=== PATIENT | male | born 1975 | race Hispanic/Latino ===

== ENCOUNTER 2017-12-12 14:53 | Inpatient (IN) | payer OTHER, MEDICARE ==
[~2017-12-12] VITALS: Ht 180.3 cm; Wt 124.7 kg
[2017-12-12 15:18] LABS: BASOPHILS % (AUTO) 0.7 % (0.0-5.0); EOSINOPHILS % (AUTO) 0.1 % (0.0-8.0); LYMPHOCYTES % (AUTO) 17.5 % (21.0-51.0); MEAN CORPUSCULAR HEMOGLOBIN 29.7 pg (27.0-33.0); MEAN CORPUSCULAR HGB CONC 35.3 g/dL (32.0-36.0); MEAN CORPUSCULAR VOLUME 84.1 fL (79-99); MONOCYTES % (AUTO) 3.2 % (3.0-13.0); NEUTROPHILS % (AUTO) 78.5 % (40.0-77.0); PLATELET COUNT (AUTO) 262 K/uL (130-400); RED CELL DISTRIBUTION WIDTH 13.7 % (11.0-15.5); WHITE BLOOD COUNT (AUTO) 10.6 K/uL (4.8-10.8)
[2017-12-12] MEDS ORDERED: ONDANSETRON HCL 4 MG/2 ML VIAL ONE (15:18)
[2017-12-12] MEDS ORDERED: HYDROMORPHONE HCL 2 MG/ML VIAL ONE ×2 (15:19→22:18)
[2017-12-12 15:21] LABS: HEMATOCRIT 17.6 % (42-54)
[2017-12-12 15:30] LABS: CARBON DIOXIDE 22 mmol/L (21-32); CHLORIDE 100 mmol/L (101-111); CREATININE 5.1 mg/dL (0.5-1.5); GLOMERULAR FILTR. RATE CALC 13 mL/min (>60); GLUCOSE,RANDOM 264 mg/dL (70-105); INR 1.01 (0.85-1.15); PARTIAL THROMBOPLASTIN TIME 30.8 SEC (26.3-35.5); POTASSIUM 3.3 mmol/L (3.5-5.1); PROTHROMBIN TIME 10.6 SEC (9.6-11.6); SODIUM SERUM 137 mmol/L (136-145); UREA NITROGEN, BLOOD 38 mg/dL (7-18)
[2017-12-12 15:43] LABS: ALANINE AMINOTRANSFERASE 13 U/L (12-78); ASPARTATE AMINOTRANSFERASE 14 U/L (10-37); BILIRUBIN,TOTAL 0.3 mg/dL (0.2-1.0); CREATINE KINASE MB < 0.5 ng/mL (0.5-3.6); CREATINE KINASE, TOTAL 22 U/L (21-232); TOTAL PROTEIN, SERUM 6.6 g/dL (6.0-8.3)
[2017-12-12] MEDS ORDERED: MEROPENEM 1 GM VIAL ONE (15:43)
[2017-12-12] MEDS ORDERED: SODIUM CHLORIDE 0.9% 1000ML 3,000 ML IV ONE (15:43)
[2017-12-12] MEDS ORDERED: SODIUM CHLORIDE 0.9% 1000ML 1,000 ML IV ONE (18:14)
[2017-12-12 19:30] VITALS: BP 157/85
[2017-12-12] MEDS ORDERED: COMPOUND IV REFRIGERATED 1 EACH IVSOLN MISC PRN (20:30)
[2017-12-12] MEDS ORDERED: MORPHINE SULFATE 4 MG/1ML SYG IVP PRN ×2 (20:30)
[2017-12-12] MEDS ORDERED: ONDANSETRON HCL 4 MG/2 ML VIAL IVP PRN (20:30)
[2017-12-12] MEDS ORDERED: VANCOMYCIN PROTOCOL PER PHARMACY IV SCH (20:30)
[2017-12-12] MEDS ORDERED: VANCOMYCIN 1.75 GM in SODIUM CHLORIDE 0.9% 250 ML IV SCH (20:30)
[2017-12-12] MEDS ORDERED: ACETAMINOPHEN 325 MG TAB PO PRN (20:30)
[2017-12-12] MEDS ORDERED: HYDROMORPHONE 1 MG/1 ML AMP IVP ONE (22:30)
[2017-12-12 23:00] VITALS: BP 128/89
[2017-12-13] VITALS (22 sets, daily range): BP systolic 101–142; BP diastolic 47–74
[2017-12-13 01:58] LABS: APPEARANCE,URINE Cloudy (CLEAR); BILIRUBIN,URINE Negative (NEGATIVE); COLOR,URINE Red (YELLOW); GLUCOSE, URINE (UA) 500 mg/dL (NEGATIVE); KETONES,URINE Negative (NEGATIVE); LEUKOCYTE ESTERASE ,URINE Moderate (NEGATIVE); NITRATE,URINE Negative (NEGATIVE); OCCULT BLOOD,URINE Large (NEGATIVE); PH,URINE 5.5 (5.0-8.0); PROTEIN,URINE 300 (NEGATIVE); UROBILINOGEN,URINE 0.2 mg/dL (0.2-1.0)
[2017-12-13 02:03] LABS: BACTERIA,URINE Many /HPF (None Seen); RBC,URINE TNTC /HPF (0-1); WBC,URINE TNTC /HPF (0-1)
[2017-12-13 02:05] LABS: AMPHET/METH SCREEN,URINE NEGATIVE (NEGATIVE); BARBITURATE SCREEN, URINE NEGATIVE (NEGATIVE); BENZODIAZEPINES SCREEN,URINE NEGATIVE (NEGATIVE); CANNABINOID SCREEN,URINE NEGATIVE (NEGATIVE); COCAINE SCREEN,URINE POSITIVE (NEGATIVE); OPIATE SCREEN,URINE NEGATIVE (NEGATIVE); PHENCYCLIDINE SCREEN,URINE NEGATIVE (NEGATIVE)
[2017-12-13] MEDS ORDERED: HYDROMORPHONE 4MG/ML 1ML VIAL IVP PRN (02:30)
[2017-12-13] MEDS ORDERED: HYDROMORPHONE HCL 2 MG/ML VIAL ONE ×2 (02:38→06:43)
[2017-12-13] MEDS: MEROPENEM 500 MG VIAL IVP SCH ×2 (04:37→16:33)
[2017-12-13 07:03] LABS: MEAN CORPUSCULAR HEMOGLOBIN 31.2 pg (27.0-33.0); MEAN CORPUSCULAR HGB CONC 35.9 g/dL (32.0-36.0); MEAN CORPUSCULAR VOLUME 87.1 fL (79-99); PLATELET COUNT (AUTO) 169 K/uL (130-400); RED CELL DISTRIBUTION WIDTH 14.3 % (11.0-15.5); WHITE BLOOD COUNT (AUTO) 5.1 K/uL (4.8-10.8)
[2017-12-13 07:05] LABS: HEMATOCRIT 18.3 % (42-54)
[2017-12-13 07:20] LABS: POTASSIUM 3.4 mmol/L (3.5-5.1); THYROID STIMULATING HORMONE 2.87 uIU/mL (0.36-3.74)
[2017-12-13] MEDS: INSULIN HUMULIN R 100 UNIT/ML 3ML SQ SCH ×3 (07:30→21:00)
[2017-12-13 07:38] LABS: HEMOGLOBIN A1C 5.5 % (4.0-6.0)
[2017-12-13] MEDS: LINEZOLID 600 MG/ISO-OSM 300 ML IV SCH (16:32)
[2017-12-13 17:31] LABS: MEAN CORPUSCULAR HEMOGLOBIN 31.7 pg (27.0-33.0); MEAN CORPUSCULAR HGB CONC 36.7 g/dL (32.0-36.0); MEAN CORPUSCULAR VOLUME 86.2 fL (79-99); PLATELET COUNT (AUTO) 135 K/uL (130-400); RED BLOOD CELL COUNT(AUTO) 2.18 MIL/uL (4.50-6.20); RED CELL DISTRIBUTION WIDTH 14.1 % (11.0-15.5); WHITE BLOOD COUNT (AUTO) 9.4 K/uL (4.8-10.8)
[2017-12-13] MEDS ORDERED: BUPIVACAINE/PF 0.5% 30ML VIAL ONE (17:48)
[2017-12-13] MEDS ORDERED: SUCCINYLCHOLINE 200MG/10ML SYR ONE (17:48)
[2017-12-13] MEDS ORDERED: GLYCOPYRROLATE 0.2 MG/ML 5 ML VIAL ONE (17:48)
[2017-12-13] MEDS ORDERED: LIDOCAINE PF 2% 5ML ABBOJECT ONE (17:48)
[2017-12-13] MEDS ORDERED: ONDANSETRON HCL 4 MG/2 ML VIAL ONE (17:48)
[2017-12-13] MEDS ORDERED: LIDOCAINE HCL 1% 20 ML VIAL ONE (17:48)
[2017-12-13] MEDS ORDERED: DEXAMETHASONE SOD PHOSPHATE 10MG/ML 1ML VIAL ONE (17:48)
[2017-12-13] MEDS ORDERED: MIDAZOLAM HCL 1 MG/ML 2ML VIAL ONE ×3 (17:49→18:31)
[2017-12-13] MEDS ORDERED: PROPOFOL 10 MG/ML 20ML VIAL IV ONE (17:49)
[2017-12-13] MEDS ORDERED: FENTANYL CITRATE PF 50 MCG/1 ML 2ML VIAL ONE ×3 (17:49→18:37)
[2017-12-13 17:50] LABS: HEMATOCRIT 18.8 % (42-54)
[2017-12-13 21:04] LABS: CREATININE 6.5 mg/dL (0.5-1.5); POTASSIUM 3.5 mmol/L (3.5-5.1)
[2017-12-13 21:08] LABS: HEMATOCRIT 16.5 % (42-54)
[2017-12-13] MEDS ORDERED: SODIUM CHLORIDE 0.9% 500ML 500 ML IV ONE (22:12)
[2017-12-13] MEDS: RISPERIDONE 1 MG TABLET PO SCH (22:20)
[2017-12-13] MEDS: OXCARBAZEPINE 300 MG TAB PO SCH (22:20)
[2017-12-13] MEDS: HYDROMORPHONE HCL 2 MG/ML VIAL IVP PRN (23:18)
[2017-12-14] VITALS (10 sets, daily range): BP systolic 95–148; BP diastolic 49–82
[2017-12-14] MEDS: LINEZOLID 600 MG/ISO-OSM 300 ML IV SCH ×3 (02:00→14:31)
[2017-12-14] MEDS: HYDROMORPHONE HCL 2 MG/ML VIAL IVP PRN ×4 (04:18→21:44)
[2017-12-14] MEDS: MEROPENEM 500 MG VIAL IVP SCH ×2 (04:39→17:07)
[2017-12-14 06:16] LABS: MEAN CORPUSCULAR HEMOGLOBIN 31.1 pg (27.0-33.0); MEAN CORPUSCULAR HGB CONC 37.1 g/dL (32.0-36.0); MEAN CORPUSCULAR VOLUME 83.8 fL (79-99); PLATELET COUNT (AUTO) 129 K/uL (130-400); RED BLOOD CELL COUNT(AUTO) 2.42 MIL/uL (4.50-6.20); RED CELL DISTRIBUTION WIDTH 14.1 % (11.0-15.5); WHITE BLOOD COUNT (AUTO) 8.7 K/uL (4.8-10.8)
[2017-12-14 06:31] LABS: ALBUMIN 1.5 g/dL (3.5-5.0); BILIRUBIN,TOTAL 0.3 mg/dL (0.2-1.0); CREATININE 7.3 mg/dL (0.5-1.5); MAGNESIUM 1.2 mg/dL (1.80-2.40); PHOSPHORUS 7.3 mg/dL (2.5-4.9); POTASSIUM 3.1 mmol/L (3.5-5.1); TOTAL PROTEIN, SERUM 5.2 g/dL (6.0-8.3); URIC ACID 6.8 mg/dL (2.6-7.2)
[2017-12-14 06:35] LABS: HEMATOCRIT 20.3 % (42-54)
[2017-12-14 06:37] LABS: HEMOGLOBIN A1C 5.2 % (4.0-6.0)
[2017-12-14] MEDS: INSULIN HUMULIN R 100 UNIT/ML 3ML SQ SCH ×4 (06:57→21:40)
[2017-12-14] MEDS: ASPIRIN 81 MG EC TAB PO SCH ×2 (09:00→17:26)
[2017-12-14] MEDS: CLOPIDOGREL BISULFATE 75 MG TAB PO SCH ×2 (09:00→17:26)
[2017-12-14] MEDS: OXCARBAZEPINE 300 MG TAB PO SCH ×2 (11:23→20:57)
[2017-12-14] MEDS: FOLIC ACID/VITAMIN B COMP W-C 1 MG CAPSULE PO SCH (11:23)
[2017-12-14] MEDS: FLUOXETINE HCL 10 MG CAPSULE PO SCH (11:23)
[2017-12-14] MEDS: ALPRAZOLAM 1 MG TAB PO SCH (20:57)
[2017-12-14] MEDS: RISPERIDONE 1 MG TABLET PO SCH (20:57)
[2017-12-15 03:30] VITALS: BP 134/91
[2017-12-15] MEDS: MEROPENEM 500 MG VIAL IVP SCH ×2 (03:48→17:11)
[2017-12-15] MEDS: LINEZOLID 600 MG/ISO-OSM 300 ML IV SCH ×2 (03:48→17:11)
[2017-12-15] MEDS: HYDROMORPHONE HCL 2 MG/ML VIAL IVP PRN ×4 (03:49→21:32)
[2017-12-15 04:01] LABS: POTASSIUM 3.3 mmol/L (3.5-5.1)
[2017-12-15 04:11] LABS: CREATININE 8.2 mg/dL (0.5-1.5)
[2017-12-15 05:17] LABS: HEMATOCRIT 34.4 % (42-54); MEAN CORPUSCULAR HEMOGLOBIN 29.2 pg (27.0-33.0); MEAN CORPUSCULAR HGB CONC 32.7 g/dL (32.0-36.0); MEAN CORPUSCULAR VOLUME 89.3 fL (79-99); PLATELET COUNT (AUTO) 283 K/uL (130-400); RED BLOOD CELL COUNT(AUTO) 3.86 MIL/uL (4.50-6.20); RED CELL DISTRIBUTION WIDTH 16.2 % (11.0-15.5); WHITE BLOOD COUNT (AUTO) 5.4 K/uL (4.8-10.8)
[2017-12-15 05:42] LABS: BAND NEUTROPHILS % (MANUAL) 7 % (0-2); EOSINOPHILS % (MANUAL) 1 % (1-6); LYMPHOCYTES % (MANUAL) 25 % (22-44); MONOCYTES % (MANUAL) 8 % (2-9); SEGMENTED NEUTROPHILS % 59 % (40-70)
[2017-12-15 05:43] LABS: MAN.DIFF COMMENT-IMPRESSION MANUAL DIFFERENTIAL; PLATELET MORPHOLOGY COMMENT ADEQUATE
[2017-12-15 07:00] VITALS: BP 142/82
[2017-12-15] MEDS: INSULIN HUMULIN R 100 UNIT/ML 3ML SQ SCH ×4 (07:07→21:29)
[2017-12-15] MEDS ORDERED: HYDROMORPHONE HCL 2 MG/ML VIAL ONE (08:50)
[2017-12-15] MEDS: FOLIC ACID/VITAMIN B COMP W-C 1 MG CAPSULE PO SCH (09:05)
[2017-12-15] MEDS: FLUOXETINE HCL 10 MG CAPSULE PO SCH (09:05)
[2017-12-15] MEDS: OXCARBAZEPINE 300 MG TAB PO SCH ×2 (09:05→21:32)
[2017-12-15] MEDS: ALPRAZOLAM 1 MG TAB PO SCH ×2 (10:07→21:32)
[2017-12-15 11:00] VITALS: BP 111/61
[2017-12-15 16:00] VITALS: BP 130/82
[2017-12-15 19:31] VITALS: BP 144/71
[2017-12-15] MEDS ORDERED: INSULIN DETEMIR 10ML 100 UNIT/ML 10ML SQ SCH (21:00)
[2017-12-15] MEDS ORDERED: INSULIN GLARGINE 100 UNITS/ML 10 ML VIAL SQ SCH (21:00)
[2017-12-15] MEDS: RISPERIDONE 1 MG TABLET PO SCH (21:32)
[2017-12-15 22:39] LABS: APPEARANCE,URINE Clear (CLEAR); BILIRUBIN,URINE Negative (NEGATIVE); COLOR,URINE Yellow (YELLOW); GLUCOSE, URINE (UA) 500 mg/dL (NEGATIVE); KETONES,URINE Negative (NEGATIVE); LEUKOCYTE ESTERASE ,URINE Small (NEGATIVE); NITRATE,URINE Negative (NEGATIVE); OCCULT BLOOD,URINE Large (NEGATIVE); PH,URINE 5.5 (5.0-8.0); PROTEIN,URINE POS 2+ (NEGATIVE); UROBILINOGEN,URINE 0.2 mg/dL (0.2-1.0)
[2017-12-15 22:53] LABS: BACTERIA,URINE Moderate /HPF (None Seen); MUCUS,URINE Few LPF (None Seen); RBC,URINE TNTC /HPF (0-1); SQUAMOUS EPITHELIAL CELL,UR Few /LPF (0-2); WBC,URINE 26-50 /HPF (0-1)
[2017-12-15 23:42] VITALS: BP 152/77
[2017-12-16] MEDS: HYDROMORPHONE HCL 2 MG/ML VIAL IVP PRN ×6 (00:54→22:22)
[2017-12-16 03:40] VITALS: BP 127/79
[2017-12-16] MEDS: MEROPENEM 500 MG VIAL IVP SCH ×2 (04:00→18:16)
[2017-12-16] MEDS: LINEZOLID 600 MG/ISO-OSM 300 ML IV SCH (04:00)
[2017-12-16 05:07] LABS: HEMATOCRIT 23.7 % (42-54); MEAN CORPUSCULAR HEMOGLOBIN 28.9 pg (27.0-33.0); MEAN CORPUSCULAR HGB CONC 35.1 g/dL (32.0-36.0); MEAN CORPUSCULAR VOLUME 82.4 fL (79-99); PLATELET COUNT (AUTO) 174 K/uL (130-400); RED BLOOD CELL COUNT(AUTO) 2.88 MIL/uL (4.50-6.20); RED CELL DISTRIBUTION WIDTH 15.3 % (11.0-15.5); WHITE BLOOD COUNT (AUTO) 6.7 K/uL (4.8-10.8)
[2017-12-16 05:14] LABS: INR 0.91 (0.85-1.15); PARTIAL THROMBOPLASTIN TIME 34.3 SEC (26.3-35.5); PROTHROMBIN TIME 9.6 SEC (9.6-11.6)
[2017-12-16 05:21] LABS: MAGNESIUM 1.5 mg/dL (1.80-2.40); PHOSPHORUS 8.9 mg/dL (2.5-4.9); POTASSIUM 3.4 mmol/L (3.5-5.1)
[2017-12-16 05:24] LABS: BAND NEUTROPHILS % (MANUAL) 11 % (0-2); EOSINOPHILS % (MANUAL) 1 % (1-6); LYMPHOCYTES % (MANUAL) 39 % (22-44); MONOCYTES % (MANUAL) 1 % (2-9); SEGMENTED NEUTROPHILS % 48 % (40-70)
[2017-12-16 05:25] LABS: MAN.DIFF COMMENT-IMPRESSION MANUAL DIFFERENTIAL; PLATELET MORPHOLOGY COMMENT ADEQUATE
[2017-12-16] MEDS: INSULIN HUMULIN R 100 UNIT/ML 3ML SQ SCH ×4 (06:21→22:36)
[2017-12-16 08:00] VITALS: BP 96/67
[2017-12-16] MEDS: CLOPIDOGREL BISULFATE 75 MG TAB PO SCH (09:36)
[2017-12-16] MEDS: FOLIC ACID/VITAMIN B COMP W-C 1 MG CAPSULE PO SCH (09:36)
[2017-12-16] MEDS: ASPIRIN 81 MG EC TAB PO SCH (09:36)
[2017-12-16] MEDS: FLUOXETINE HCL 10 MG CAPSULE PO SCH (09:37)
[2017-12-16] MEDS: OXCARBAZEPINE 300 MG TAB PO SCH ×2 (09:37→22:21)
[2017-12-16] MEDS: ALPRAZOLAM 1 MG TAB PO SCH ×2 (10:58→22:21)
[2017-12-16 12:00] VITALS: BP 120/71
[2017-12-16] MEDS ORDERED: POTASSIUM CHLORIDE 20 MEQ ERTAB PO ONE ×2 (14:45→17:49)
[2017-12-16 16:00] VITALS: BP 131/72
[2017-12-16] MEDS: CALCIUM ACETATE 667 MG CAPSULE PO SCH (18:16)
[2017-12-16 19:32] VITALS: BP 141/87
[2017-12-16] MEDS ORDERED: INSULIN GLARGINE 100 UNITS/ML 10 ML VIAL SQ SCH (21:00)
[2017-12-16] MEDS: SODIUM BICARBONATE 650 MG TAB PO SCH (22:22)
[2017-12-16] MEDS: RISPERIDONE 1 MG TABLET PO SCH (22:22)
[2017-12-16 23:37] VITALS: BP 149/89
[2017-12-17] MEDS: HYDROMORPHONE HCL 2 MG/ML VIAL IVP PRN ×2 (02:00→06:01)
[2017-12-17 03:46] VITALS: BP 126/76
[2017-12-17 04:45] LABS: MEAN CORPUSCULAR HEMOGLOBIN 30.7 pg (27.0-33.0); MEAN CORPUSCULAR HGB CONC 37.4 g/dL (32.0-36.0); MEAN CORPUSCULAR VOLUME 81.9 fL (79-99); PLATELET COUNT (AUTO) 186 K/uL (130-400); RED BLOOD CELL COUNT(AUTO) 2.52 MIL/uL (4.50-6.20); RED CELL DISTRIBUTION WIDTH 14.8 % (11.0-15.5); WHITE BLOOD COUNT (AUTO) 7.9 K/uL (4.8-10.8)
[2017-12-17 04:47] LABS: CREATININE 7.8 mg/dL (0.5-1.5); HEMATOCRIT 20.6 % (42-54); POTASSIUM 3.6 mmol/L (3.5-5.1)
[2017-12-17 04:50] LABS: BAND NEUTROPHILS % (MANUAL) 9 % (0-2); BASOPHILS % (MANUAL) 1 % (0-2); EOSINOPHILS % (MANUAL) 2 % (1-6); LYMPHOCYTES % (MANUAL) 25 % (22-44); MAN.DIFF COMMENT-IMPRESSION MANUAL DIFFERENTIAL; MONOCYTES % (MANUAL) 4 % (2-9); PLATELET MORPHOLOGY COMMENT ADEQUATE; SEGMENTED NEUTROPHILS % 59 % (40-70)
[2017-12-17] MEDS: INSULIN HUMULIN R 100 UNIT/ML 3ML SQ SCH ×4 (06:00→21:42)
[2017-12-17] MEDS: MEROPENEM 500 MG VIAL IVP SCH ×2 (06:00→16:28)
[2017-12-17 08:00] VITALS: BP 136/79
[2017-12-17] MEDS ORDERED: TRAMADOL HCL 50 MG TABLET PO PRN (08:15)
[2017-12-17] MEDS: CLOPIDOGREL BISULFATE 75 MG TAB PO SCH (10:04)
[2017-12-17] MEDS: ASPIRIN 81 MG EC TAB PO SCH (10:04)
[2017-12-17] MEDS: OXCARBAZEPINE 300 MG TAB PO SCH ×2 (10:04→19:47)
[2017-12-17] MEDS: SODIUM BICARBONATE 650 MG TAB PO SCH ×2 (10:04→19:47)
[2017-12-17] MEDS: FOLIC ACID/VITAMIN B COMP W-C 1 MG CAPSULE PO SCH (10:04)
[2017-12-17] MEDS: FLUOXETINE HCL 10 MG CAPSULE PO SCH (10:04)
[2017-12-17] MEDS: ALPRAZOLAM 1 MG TAB PO SCH ×2 (10:04→19:47)
[2017-12-17] MEDS: CALCIUM ACETATE 667 MG CAPSULE PO SCH ×2 (10:19→16:28)
[2017-12-17 11:00] VITALS: BP 112/73
[2017-12-17 16:00] VITALS: BP 152/81
[2017-12-17] MEDS: RISPERIDONE 1 MG TABLET PO SCH (19:47)
[2017-12-17 20:00] VITALS: BP 177/96
[2017-12-17] MEDS: INSULIN GLARGINE 100 UNITS/ML 10 ML VIAL SQ SCH (21:43)
[2017-12-17] MEDS ORDERED: AMLODIPINE BESYLATE 5 MG TAB PO ONE (22:00)
[2017-12-18] VITALS: BP 146/90
[2017-12-18] MEDS ORDERED: HYDROMORPHONE HCL 0.5 MG/0.5 ML ML ONE ×2 (00:27→10:43)
[2017-12-18] MEDS ORDERED: HYDROMORPHONE 1 MG/1 ML AMP ONE ×3 (00:42→23:53)
[2017-12-18 04:00] VITALS: BP 142/80
[2017-12-18] MEDS: MEROPENEM 500 MG VIAL IVP SCH ×2 (04:08→16:11)
[2017-12-18 04:33] LABS: HEMATOCRIT 21.4 % (42-54); MEAN CORPUSCULAR HEMOGLOBIN 29.1 pg (27.0-33.0); MEAN CORPUSCULAR HGB CONC 35.4 g/dL (32.0-36.0); MEAN CORPUSCULAR VOLUME 82.2 fL (79-99); PLATELET COUNT (AUTO) 228 K/uL (130-400); RED CELL DISTRIBUTION WIDTH 14.7 % (11.0-15.5); WHITE BLOOD COUNT (AUTO) 7.7 K/uL (4.8-10.8)
[2017-12-18 04:48] LABS: POTASSIUM 3.6 mmol/L (3.5-5.1)
[2017-12-18] MEDS: INSULIN HUMULIN R 100 UNIT/ML 3ML SQ SCH ×4 (06:06→21:26)
[2017-12-18 07:59] VITALS: BP 136/65
[2017-12-18] MEDS: ALPRAZOLAM 1 MG TAB PO SCH ×2 (10:03→21:31)
[2017-12-18] MEDS: SODIUM BICARBONATE 650 MG TAB PO SCH ×2 (10:03→21:31)
[2017-12-18] MEDS: FOLIC ACID/VITAMIN B COMP W-C 1 MG CAPSULE PO SCH (10:04)
[2017-12-18] MEDS: AMLODIPINE BESYLATE 5 MG TAB PO SCH (10:04)
[2017-12-18] MEDS: OXCARBAZEPINE 300 MG TAB PO SCH ×2 (10:04→21:31)
[2017-12-18] MEDS: CLOPIDOGREL BISULFATE 75 MG TAB PO SCH (10:04)
[2017-12-18] MEDS: ASPIRIN 81 MG EC TAB PO SCH (10:04)
[2017-12-18] MEDS: FLUOXETINE HCL 10 MG CAPSULE PO SCH (10:04)
[2017-12-18] MEDS: CALCIUM ACETATE 667 MG CAPSULE PO SCH ×2 (10:07→16:24)
[2017-12-18 11:51] VITALS: BP 176/106
[2017-12-18] MEDS: HYDROMORPHONE HCL 2 MG/ML VIAL IVP PRN (15:20)
[2017-12-18 16:00] VITALS: BP 169/111
[2017-12-18 20:00] VITALS: BP 160/90
[2017-12-18] MEDS: INSULIN GLARGINE 100 UNITS/ML 10 ML VIAL SQ SCH (21:27)
[2017-12-18] MEDS: RISPERIDONE 1 MG TABLET PO SCH (21:31)
[2017-12-19] VITALS: BP 140/82
[2017-12-19] MEDS: MEROPENEM 500 MG VIAL IVP SCH ×3 (03:26→16:46)
[2017-12-19 04:00] VITALS: BP 133/79
[2017-12-19] MEDS: INSULIN HUMULIN R 100 UNIT/ML 3ML SQ SCH ×4 (05:57→20:53)
[2017-12-19 06:36] LABS: MEAN CORPUSCULAR HEMOGLOBIN 30.4 pg (27.0-33.0); MEAN CORPUSCULAR HGB CONC 36.8 g/dL (32.0-36.0); MEAN CORPUSCULAR VOLUME 82.7 fL (79-99); PLATELET COUNT (AUTO) 241 K/uL (130-400); RED BLOOD CELL COUNT(AUTO) 2.47 MIL/uL (4.50-6.20); RED CELL DISTRIBUTION WIDTH 14.7 % (11.0-15.5); WHITE BLOOD COUNT (AUTO) 7.7 K/uL (4.8-10.8)
[2017-12-19 06:41] LABS: HEMATOCRIT 20.4 % (42-54)
[2017-12-19 06:44] LABS: CREATININE 6.4 mg/dL (0.5-1.5); POTASSIUM 3.8 mmol/L (3.5-5.1)
[2017-12-19 06:49] LABS: INR 0.96 (0.85-1.15); PARTIAL THROMBOPLASTIN TIME 31.8 SEC (26.3-35.5); PROTHROMBIN TIME 10.1 SEC (9.6-11.6)
[2017-12-19 07:20] LABS: EOSINOPHILS % (MANUAL) 4 % (1-6); LYMPHOCYTES % (MANUAL) 27 % (22-44); MAN.DIFF COMMENT-IMPRESSION MANUAL DIFFERENTIAL; MONOCYTES % (MANUAL) 2 % (2-9); PLATELET MORPHOLOGY COMMENT ADEQUATE; SEGMENTED NEUTROPHILS % 67 % (40-70)
[2017-12-19 08:00] VITALS: BP 158/89
[2017-12-19] MEDS: CLOPIDOGREL BISULFATE 75 MG TAB PO SCH ×2 (09:00→21:04)
[2017-12-19] MEDS: SODIUM BICARBONATE 650 MG TAB PO SCH ×2 (09:09→21:04)
[2017-12-19] MEDS: AMLODIPINE BESYLATE 5 MG TAB PO SCH (09:09)
[2017-12-19] MEDS: FLUOXETINE HCL 10 MG CAPSULE PO SCH (09:09)
[2017-12-19] MEDS: OXCARBAZEPINE 300 MG TAB PO SCH ×2 (09:09→21:04)
[2017-12-19] MEDS: FOLIC ACID/VITAMIN B COMP W-C 1 MG CAPSULE PO SCH (09:09)
[2017-12-19] MEDS: CALCIUM ACETATE 667 MG CAPSULE PO SCH ×2 (09:09→16:53)
[2017-12-19] MEDS: ASPIRIN 81 MG EC TAB PO SCH (09:10)
[2017-12-19] MEDS: ALPRAZOLAM 1 MG TAB PO SCH ×2 (09:10→21:03)
[2017-12-19] MEDS ORDERED: HYDROMORPHONE 1 MG/1 ML AMP ONE ×2 (10:21→20:47)
[2017-12-19 11:00] VITALS: BP 148/97
[2017-12-19 16:00] VITALS: BP 166/94
[2017-12-19] MEDS ORDERED: HYDROMORPHONE HCL 0.5 MG/0.5 ML ML ONE (18:16)
[2017-12-19 20:00] VITALS: BP 140/86
[2017-12-19] MEDS: INSULIN GLARGINE 100 UNITS/ML 10 ML VIAL SQ SCH (20:54)
[2017-12-19] MEDS: RISPERIDONE 1 MG TABLET PO SCH (21:04)
[2017-12-20] VITALS (7 sets, daily range): BP systolic 110–157; BP diastolic 66–90
[2017-12-20] MEDS ORDERED: HYDROMORPHONE 1 MG/1 ML AMP ONE (01:28)
[2017-12-20] MEDS: INSULIN HUMULIN R 100 UNIT/ML 3ML SQ SCH ×4 (06:25→21:38)
[2017-12-20 08:13] LABS: HEMATOCRIT 22.7 % (42-54); MEAN CORPUSCULAR HEMOGLOBIN 29.2 pg (27.0-33.0); MEAN CORPUSCULAR VOLUME 83.5 fL (79-99); PLATELET COUNT (AUTO) 286 K/uL (130-400); RED BLOOD CELL COUNT(AUTO) 2.71 MIL/uL (4.50-6.20); RED CELL DISTRIBUTION WIDTH 14.9 % (11.0-15.5); WHITE BLOOD COUNT (AUTO) 8.5 K/uL (4.8-10.8)
[2017-12-20 08:43] LABS: EOSINOPHILS % (MANUAL) 3 % (1-6); LYMPHOCYTES % (MANUAL) 12 % (22-44); MAN.DIFF COMMENT-IMPRESSION MANUAL DIFFERENTIAL; MONOCYTES % (MANUAL) 4 % (2-9); PLATELET MORPHOLOGY COMMENT ADEQUATE; SEGMENTED NEUTROPHILS % 81 % (40-70)
[2017-12-20 08:44] LABS: CREATININE 5.7 mg/dL (0.5-1.5)
[2017-12-20] MEDS: FLUOXETINE HCL 10 MG CAPSULE PO SCH (09:00)
[2017-12-20] MEDS ORDERED: EPOETIN ALFA 3,000 UNIT/ML ML SQ SCH (09:00)
[2017-12-20] MEDS: ALPRAZOLAM 1 MG TAB PO SCH ×2 (09:01→21:32)
[2017-12-20] MEDS: AMLODIPINE BESYLATE 5 MG TAB PO SCH (09:01)
[2017-12-20] MEDS: CALCIUM ACETATE 667 MG CAPSULE PO SCH ×2 (09:01→17:05)
[2017-12-20] MEDS: OXCARBAZEPINE 300 MG TAB PO SCH ×2 (09:01→21:32)
[2017-12-20] MEDS: FOLIC ACID/VITAMIN B COMP W-C 1 MG CAPSULE PO SCH (09:01)
[2017-12-20] MEDS: ASPIRIN 81 MG EC TAB PO SCH (09:01)
[2017-12-20] MEDS: SODIUM BICARBONATE 650 MG TAB PO SCH ×2 (09:01→21:32)
[2017-12-20] MEDS ORDERED: EPOETIN ALFA 20,000 UNIT/ML VIAL SQ SCH (09:11)
[2017-12-20 10:12] LABS: INR 0.98 (0.85-1.15); PROTHROMBIN TIME 10.3 SEC (9.6-11.6)
[2017-12-20] MEDS: MEROPENEM 500 MG VIAL IVP SCH (17:11)
[2017-12-20] MEDS: RISPERIDONE 1 MG TABLET PO SCH (21:32)
[2017-12-20] MEDS: INSULIN GLARGINE 100 UNITS/ML 10 ML VIAL SQ SCH (21:40)
[2017-12-20] MEDS: HYDROMORPHONE HCL 2 MG/ML VIAL IVP PRN (21:52)
[2017-12-21] VITALS (26 sets, daily range): BP systolic 102–188; BP diastolic 51–104
[2017-12-21] MEDS: HYDROMORPHONE HCL 2 MG/ML VIAL IVP PRN ×4 (01:16→21:16)
[2017-12-21] MEDS: MEROPENEM 500 MG VIAL IVP SCH ×2 (03:54→16:45)
[2017-12-21 05:11] LABS: MEAN CORPUSCULAR HEMOGLOBIN 29.3 pg (27.0-33.0); MEAN CORPUSCULAR HGB CONC 34.9 g/dL (32.0-36.0); MEAN CORPUSCULAR VOLUME 84.2 fL (79-99); PLATELET COUNT (AUTO) 214 K/uL (130-400); RED BLOOD CELL COUNT(AUTO) 2.42 MIL/uL (4.50-6.20); WHITE BLOOD COUNT (AUTO) 6.9 K/uL (4.8-10.8)
[2017-12-21 05:14] LABS: CREATININE 5.1 mg/dL (0.5-1.5); HEMATOCRIT 20.4 % (42-54); POTASSIUM 3.6 mmol/L (3.5-5.1)
[2017-12-21] MEDS: INSULIN HUMULIN R 100 UNIT/ML 3ML SQ SCH ×4 (06:30→21:00)
[2017-12-21] MEDS: CLOPIDOGREL BISULFATE 75 MG TAB PO SCH (08:22)
[2017-12-21] MEDS: ASPIRIN 81 MG EC TAB PO SCH (08:23)
[2017-12-21] MEDS: FOLIC ACID/VITAMIN B COMP W-C 1 MG CAPSULE PO SCH (08:46)
[2017-12-21] MEDS: CALCIUM ACETATE 667 MG CAPSULE PO SCH ×2 (08:46→17:00)
[2017-12-21] MEDS: ALPRAZOLAM 1 MG TAB PO SCH (08:47)
[2017-12-21] MEDS: OXCARBAZEPINE 300 MG TAB PO SCH ×2 (08:47→21:22)
[2017-12-21] MEDS: FLUOXETINE HCL 10 MG CAPSULE PO SCH (08:47)
[2017-12-21] MEDS: AMLODIPINE BESYLATE 5 MG TAB PO SCH (08:47)
[2017-12-21] MEDS: SODIUM BICARBONATE 650 MG TAB PO SCH ×2 (08:47→21:21)
[2017-12-21] MEDS ORDERED: HYDROMORPHONE HCL 0.5 MG/0.5 ML ML ONE (11:56)
[2017-12-21] MEDS ORDERED: BUPIVACAINE/PF 0.5% 30ML VIAL ONE (15:05)
[2017-12-21] MEDS ORDERED: LIDOCAINE HCL 1% 20 ML VIAL ONE (15:05)
[2017-12-21] MEDS ORDERED: SODIUM CHLORIDE 0.9% 1000ML 1,000 ML IV ONE (17:20)
[2017-12-21] MEDS ORDERED: KETAMINE HCL 100 MG/ML 5ML VIAL IJ ONE (17:27)
[2017-12-21] MEDS ORDERED: PROPOFOL 10 MG/ML 20ML VIAL IV ONE ×2 (17:33→18:08)
[2017-12-21] MEDS ORDERED: MIDAZOLAM HCL 1 MG/ML 2ML VIAL ONE (17:33)
[2017-12-21] MEDS ORDERED: LABETALOL HCL 5 MG/ML 20ML VIAL IV ONE (18:07)
[2017-12-21] MEDS ORDERED: HYDROMORPHONE 4MG/ML 1ML VIAL ONE ×2 (19:39→23:04)
[2017-12-21] MEDS ORDERED: MEPERIDINE-PF 50 MG/ML SYG ONE (19:52)
[2017-12-21] MEDS: RISPERIDONE 1 MG TABLET PO SCH (21:22)
[2017-12-21] MEDS: INSULIN GLARGINE 100 UNITS/ML 10 ML VIAL SQ SCH (22:01)
[2017-12-21] MEDS ORDERED: HYDRALAZINE HCL 20 MG/ML VIAL IV PRN (22:45)
[2017-12-22] VITALS (8 sets, daily range): BP systolic 97–150; BP diastolic 56–84
[2017-12-22] MEDS: HYDROMORPHONE HCL 2 MG/ML VIAL IVP PRN ×2 (03:22→21:14)
[2017-12-22] MEDS: MEROPENEM 500 MG VIAL IVP SCH ×2 (03:45→17:23)
[2017-12-22 05:13] LABS: HEMATOCRIT 22.4 % (42-54); MEAN CORPUSCULAR HEMOGLOBIN 29.3 pg (27.0-33.0); MEAN CORPUSCULAR HGB CONC 35.2 g/dL (32.0-36.0); MEAN CORPUSCULAR VOLUME 83.2 fL (79-99); PLATELET COUNT (AUTO) 254 K/uL (130-400); RED CELL DISTRIBUTION WIDTH 14.8 % (11.0-15.5); WHITE BLOOD COUNT (AUTO) 9.1 K/uL (4.8-10.8)
[2017-12-22 05:29] LABS: CREATININE 4.6 mg/dL (0.5-1.5); POTASSIUM 4.2 mmol/L (3.5-5.1)
[2017-12-22] MEDS: INSULIN HUMULIN R 100 UNIT/ML 3ML SQ SCH ×4 (06:29→17:32)
[2017-12-22] MEDS ORDERED: FUROSEMIDE 10 MG/ML 4ML VIAL IV SCH (08:45)
[2017-12-22] MEDS ORDERED: HYDROMORPHONE HCL 0.5 MG/0.5 ML ML ONE ×3 (08:59→17:02)
[2017-12-22] MEDS: FOLIC ACID/VITAMIN B COMP W-C 1 MG CAPSULE PO SCH (09:05)
[2017-12-22] MEDS: CLOPIDOGREL BISULFATE 75 MG TAB PO SCH (09:05)
[2017-12-22] MEDS: AMLODIPINE BESYLATE 5 MG TAB PO SCH (09:05)
[2017-12-22] MEDS: FLUOXETINE HCL 10 MG CAPSULE PO SCH (09:05)
[2017-12-22] MEDS: SODIUM BICARBONATE 650 MG TAB PO SCH ×2 (09:05→21:09)
[2017-12-22] MEDS: CALCIUM ACETATE 667 MG CAPSULE PO SCH ×2 (09:05→17:23)
[2017-12-22] MEDS: OXCARBAZEPINE 300 MG TAB PO SCH ×2 (09:05→21:09)
[2017-12-22] MEDS: ASPIRIN 81 MG EC TAB PO SCH (09:05)
[2017-12-22] MEDS: RISPERIDONE 1 MG TABLET PO SCH (21:09)
[2017-12-22] MEDS: INSULIN GLARGINE 100 UNITS/ML 10 ML VIAL SQ SCH (21:58)
[2017-12-23] VITALS: BP 148/72
[2017-12-23] MEDS: HYDROMORPHONE HCL 2 MG/ML VIAL IVP PRN ×2 (01:05→04:36)
[2017-12-23 04:00] VITALS: BP 128/82
[2017-12-23] MEDS: MEROPENEM 500 MG VIAL IVP SCH (04:36)
[2017-12-23 05:00] LABS: CREATININE 4.3 mg/dL (0.5-1.5); POTASSIUM 3.8 mmol/L (3.5-5.1)
[2017-12-23] MEDS: INSULIN HUMULIN R 100 UNIT/ML 3ML SQ SCH ×3 (06:28→16:30)
[2017-12-23 06:29] LABS: HEMATOCRIT 25.7 % (42-54); MEAN CORPUSCULAR HEMOGLOBIN 29.1 pg (27.0-33.0); MEAN CORPUSCULAR HGB CONC 34.9 g/dL (32.0-36.0); MEAN CORPUSCULAR VOLUME 83.4 fL (79-99); PLATELET COUNT (AUTO) 212 K/uL (130-400); RED BLOOD CELL COUNT(AUTO) 3.08 MIL/uL (4.50-6.20); RED CELL DISTRIBUTION WIDTH 14.9 % (11.0-15.5); WHITE BLOOD COUNT (AUTO) 8.1 K/uL (4.8-10.8)
[2017-12-23 07:00] VITALS: BP 163/74
[2017-12-23] MEDS: CALCIUM ACETATE 667 MG CAPSULE PO SCH ×2 (07:35→16:50)
[2017-12-23 08:08] LABS: BASOPHILS % (MANUAL) 2 % (0-2); EOSINOPHILS % (MANUAL) 5 % (1-6); LYMPHOCYTES % (MANUAL) 15 % (22-44); MAN.DIFF COMMENT-IMPRESSION MANUAL DIFFERENTIAL; MONOCYTES % (MANUAL) 7 % (2-9); PLATELET MORPHOLOGY COMMENT ADEQUATE; REACTIVE LYMPHOCYTES 1 % (0-0); SEGMENTED NEUTROPHILS % 70 % (40-70)
[2017-12-23] MEDS: SODIUM BICARBONATE 650 MG TAB PO SCH (09:28)
[2017-12-23] MEDS: FLUOXETINE HCL 10 MG CAPSULE PO SCH (09:28)
[2017-12-23] MEDS: FOLIC ACID/VITAMIN B COMP W-C 1 MG CAPSULE PO SCH (09:28)
[2017-12-23] MEDS: OXCARBAZEPINE 300 MG TAB PO SCH (09:28)
[2017-12-23] MEDS: CLOPIDOGREL BISULFATE 75 MG TAB PO SCH (09:29)
[2017-12-23] MEDS: AMLODIPINE BESYLATE 5 MG TAB PO SCH (09:29)
[2017-12-23] MEDS: ASPIRIN 81 MG EC TAB PO SCH (09:29)
[2017-12-23 11:00] VITALS: BP 167/83
[2017-12-23] MEDS ORDERED: MEROPENEM 500 MG VIAL IVP SCH (14:00)
[2017-12-23] MEDS ORDERED: HYDROMORPHONE HCL 0.5 MG/0.5 ML ML ONE (16:44)
== END 2017-12-23 17:30 | DRG 853 ==
LOC: EDH 14:53 → EDHIP 16:30 → 3BH 19:24
PROVIDERS: ADMIT Internal Medicine; ATTEND Internal Medicine
PROC: 30233N1 Transfusion of Nonautologous Red Blood Cells into Peripheral Vein, Percutaneous Approach (ICD-10-PCS; 2017-12-12)
PROC: 30233N1 Transfusion of Nonautologous Red Blood Cells into Peripheral Vein, Percutaneous Approach (ICD-10-PCS; 2017-12-13)
PROC: 0JBQ0ZZ Excision of Right Foot Subcutaneous Tissue and Fascia, Open Approach (ICD-10-PCS; principal; 2017-12-13 18:10)
PROC: 30233N1 Transfusion of Nonautologous Red Blood Cells into Peripheral Vein, Percutaneous Approach (ICD-10-PCS; 2017-12-14)
PROC: 0Y6M0Z9 Detachment at Right Foot, Partial 1st Ray, Open Approach (ICD-10-PCS; 2017-12-21)
PROC: 0Y6M0ZF Detachment at Right Foot, Partial 5th Ray, Open Approach (ICD-10-PCS; 2017-12-21)
PROC: 30233N1 Transfusion of Nonautologous Red Blood Cells into Peripheral Vein, Percutaneous Approach (ICD-10-PCS; 2017-12-21)
DX: A41.59 Other Gram-negative sepsis (principal); A48.0 Gas gangrene; N17.0 Acute kidney failure with tubular necrosis; D69.6 Thrombocytopenia, unspecified; E11.22 Type 2 diabetes mellitus with diabetic chronic kidney disease; E11.51 Type 2 diabetes mellitus with diabetic peripheral angiopathy without gangrene; D62 Acute posthemorrhagic anemia; I12.0 Hypertensive chronic kidney disease with stage 5 chronic kidney disease or end stage renal disease; N18.6 End stage renal disease; E11.52 Type 2 diabetes mellitus with diabetic peripheral angiopathy with gangrene; N17.9 Acute kidney failure, unspecified; M86.9 Osteomyelitis, unspecified; F31.60 Bipolar disorder, current episode mixed, unspecified; E11.65 Type 2 diabetes mellitus with hyperglycemia; E83.39 Other disorders of phosphorus metabolism; F17.210 Nicotine dependence, cigarettes, uncomplicated; F60.7 Dependent personality disorder; L08.9 Local infection of the skin and subcutaneous tissue, unspecified; L97.519 Non-pressure chronic ulcer of other part of right foot with unspecified severity; D64.9 Anemia, unspecified; N18.9 Chronic kidney disease, unspecified; E78.5 Hyperlipidemia, unspecified; E11.621 Type 2 diabetes mellitus with foot ulcer; F14.10 Cocaine abuse, uncomplicated; Z16.12 Extended spectrum beta lactamase (ESBL) resistance; Z91.19 Patient's noncompliance with other medical treatment and regimen; B96.1 Klebsiella pneumoniae [K. pneumoniae] as the cause of diseases classified elsewhere; E11.622 Type 2 diabetes mellitus with other skin ulcer; E11.69 Type 2 diabetes mellitus with other specified complication; E66.9 Obesity, unspecified; Z68.38 Body mass index [BMI] 38.0-38.9, adult; Z79.02 Long term (current) use of antithrombotics/antiplatelets; Z79.4 Long term (current) use of insulin; Z79.899 Other long term (current) drug therapy; Z79.82 Long term (current) use of aspirin; Z83.3 Family history of diabetes mellitus; Z91.11 Patient's noncompliance with dietary regimen; Z91.14 Patient's other noncompliance with medication regimen; Z91.15 Patient's noncompliance with renal dialysis; Z99.2 Dependence on renal dialysis
CPT/HCPCS: 36415; 36430; 71045; 73620; 76770; 80048; 80053; 80061; 80305; 81001; 82550; 82553; 82948; 83036; 83605; 83735; 84100; 84443; 84484; 84550; 85025; 85027; 85610; 85730; 86160; 86850; 86900; 86901; 86922; 87040; 87070; 87076; 87088; 87186; 87205; 88304; 88305; 93005; 93926; A4218; J0330; J0885; J1100; J1170; J1815; J1940; J2001; J2020; J2175; J2185; J2250; J2270; J2405; J2704; J3010; J3370; J3490; J7030; J7040; P9016

== ENCOUNTER 2018-08-20 12:49 | Observation (INO) | payer OTHER, MEDICARE ==
[~2018-08-20] VITALS: Ht 180.3 cm; Wt 127.0 kg
[2018-08-20 13:31] LABS: BASOPHILS % (AUTO) 0.7 % (0.0-5.0); EOSINOPHILS % (AUTO) 1.2 % (0.0-8.0); HEMATOCRIT 31.8 % (42-54); LYMPHOCYTES % (AUTO) 20.5 % (21.0-51.0); MEAN CORPUSCULAR HEMOGLOBIN 28.8 pg (27.0-33.0); MEAN CORPUSCULAR HGB CONC 33.9 g/dL (32.0-36.0); MONOCYTES % (AUTO) 4.4 % (3.0-13.0); NEUTROPHILS % (AUTO) 73.2 % (40.0-77.0); NUCLEATED RED BLOOD CELLS 0.1 % (0.0-0.19); PLATELET COUNT (AUTO) 171 K/uL (130-400); RED BLOOD CELL COUNT(AUTO) 3.74 MIL/uL (4.50-6.20); WHITE BLOOD COUNT (AUTO) 9.6 K/uL (4.8-10.8)
[2018-08-20 13:38] LABS: APPEARANCE,URINE CLEAR (CLEAR); BILIRUBIN,URINE NEGATIVE (NEGATIVE); GLUCOSE, URINE (UA) >=1000 mg/dL (NEGATIVE); KETONES,URINE NEGATIVE (NEGATIVE); LEUKOCYTE ESTERASE ,URINE NEGATIVE (NEGATIVE); NITRATE,URINE NEGATIVE (NEGATIVE); OCCULT BLOOD,URINE LARGE (NEGATIVE); PROTEIN,URINE 100 (NEGATIVE); UROBILINOGEN,URINE 0.2 mg/dL (0.2-1.0)
[2018-08-20 13:39] LABS: COLOR,URINE STRAW (YELLOW)
[2018-08-20 13:45] LABS: AMORPHOUS SEDIMENT,UR Trace /LPF (None Seen); BACTERIA,URINE Rare /HPF (None Seen); SQUAMOUS EPITHELIAL CELL,UR Few /HPF (0-2); WBC,URINE 0-1 /HPF (0-1)
[2018-08-20] MEDS ORDERED: INSULIN HUMULIN R 100 UNIT/ML 3ML ONE ×2 (14:15→15:46)
[2018-08-20] MEDS ORDERED: ZOSYN 3.375GM+NS 50ML 50 ML IV ONE (14:25)
[2018-08-20] MEDS ORDERED: ONDANSETRON HCL 4 MG/2 ML VIAL ONE (14:25)
[2018-08-20] MEDS ORDERED: MORPHINE SULFATE 4 MG/1ML SYG ONE (14:25)
[2018-08-20 14:37] LABS: ALBUMIN 2.7 g/dL (3.5-5.0); BILIRUBIN,TOTAL 0.2 mg/dL (0.2-1.0); CREATININE 1.9 mg/dL (0.5-1.5); POTASSIUM 4.6 mmol/L (3.5-5.1); TOTAL PROTEIN, SERUM 7.7 g/dL (6.0-8.3)
[2018-08-20] MEDS ORDERED: LIDOCAINE 1%-EPI 1:100,000 20 ML VIAL IJ ONE (14:41)
[2018-08-20] MEDS ORDERED: SODIUM CHLORIDE 0.9% 1000ML 1,000 ML IV ONE (15:23)
[2018-08-20] MEDS ORDERED: VANCOMYCIN 1GM+NS 250ML 250 ML IV ONE (15:23)
[2018-08-20] MEDS ORDERED: HYDROMORPHONE 1 MG/1 ML AMP ONE (17:45)
[2018-08-20] MEDS: ENOXAPARIN SODIUM 40 MG/0.4 ML SYRINGE SQ SCH (17:51)
[2018-08-20] MEDS ORDERED: ONDANSETRON HCL 4 MG/2 ML VIAL IVP PRN (18:00)
[2018-08-20] MEDS: 1/2 NORMAL SALINE 1,000 ML IV SCH (18:00)
[2018-08-20] MEDS ORDERED: VANCOMYCIN PROTOCOL PER PHARMACY IV SCH (18:00)
[2018-08-20] MEDS ORDERED: COMPOUND IV REFRIGERATED 1 EACH IVSOLN MISC PRN (18:15)
[2018-08-20 18:58] VITALS: BP 151/88
[2018-08-20] MEDS: ZOSYN 3.375GM+NS 50ML 50 ML IV SCH (22:50)
[2018-08-20] MEDS: INSULIN R NPO SSI SQ SCH (22:52)
[2018-08-20 23:57] VITALS: BP 135/63
[2018-08-20] MEDS: VANCOMYCIN 1.75 GM in SODIUM CHLORIDE 0.9% 250 ML IV SCH (23:58)
[2018-08-21] MEDS: INSULIN R NPO SSI SQ SCH ×6 (02:00→22:17)
[2018-08-21] MEDS: HYDROMORPHONE 1 MG/1 ML AMP IVP PRN ×3 (02:24→16:50)
[2018-08-21 03:53] VITALS: BP 129/78
[2018-08-21] MEDS: 1/2 NORMAL SALINE 1,000 ML IV SCH ×2 (04:00→14:09)
[2018-08-21] MEDS: ZOSYN 3.375GM+NS 50ML 50 ML IV SCH ×3 (05:03→21:48)
[2018-08-21 05:16] LABS: HEMATOCRIT 27.8 % (42-54); MEAN CORPUSCULAR HGB CONC 35.5 g/dL (32.0-36.0); MEAN CORPUSCULAR VOLUME 84.3 fL (79-99); PLATELET COUNT (AUTO) 172 K/uL (130-400); RED CELL DISTRIBUTION WIDTH 13.8 % (11.0-15.5); WHITE BLOOD COUNT (AUTO) 9.4 K/uL (4.8-10.8)
[2018-08-21 05:24] LABS: CREATININE 1.6 mg/dL (0.5-1.5); POTASSIUM 4.5 mmol/L (3.5-5.1)
[2018-08-21] MEDS: VANCOMYCIN 1.75 GM in SODIUM CHLORIDE 0.9% 250 ML IV SCH ×2 (07:43→21:48)
[2018-08-21] MEDS: ENOXAPARIN SODIUM 40 MG/0.4 ML SYRINGE SQ SCH (07:44)
[2018-08-21 08:00] VITALS: BP 146/85
[2018-08-21] MEDS ORDERED: INSULIN GLARGINE 100 UNITS/ML 10 ML VIAL SQ SCH (09:00)
[2018-08-21 12:00] VITALS: BP 140/89
[2018-08-21 16:00] VITALS: BP 121/67
[2018-08-21 19:00] VITALS: BP 147/87
[2018-08-21 23:00] VITALS: BP 139/82
== END 2018-08-22 00:20 | disposition left against medical advice (07) ==
LOC: EDH 12:49 → EDHIP 17:10 → 3AH 18:11
PROVIDERS: ADMIT Internal Medicine; ATTEND Internal Medicine
DX: E11.65 Type 2 diabetes mellitus with hyperglycemia (principal); L02.211 Cutaneous abscess of abdominal wall; E11.51 Type 2 diabetes mellitus with diabetic peripheral angiopathy without gangrene; E78.5 Hyperlipidemia, unspecified; I10 Essential (primary) hypertension; Z89.519 Acquired absence of unspecified leg below knee; Z91.19 Patient's noncompliance with other medical treatment and regimen; Z82.49 Family history of ischemic heart disease and other diseases of the circulatory system
CPT/HCPCS: 36415 ×2; 80048; 80053; 81001; 82948 ×9; 85025; 85027; 85651; 87040 ×2; 87070; 87076; 96361 ×2; 96365; 96366; 96368; 96372 ×2; 96375; 96376; 99291; G0378 ×31; J1170 ×5; J1650; J1815 ×8; J2270; J2405; J2543 ×5; J3370 ×3; J3490; J7030 ×3

== ENCOUNTER 2020-03-27 23:13 | Inpatient (IN) | payer OTHER, MEDICARE ==
[~2020-03-27] VITALS: Ht 180.3 cm; Wt 127.0 kg
[2020-03-28] VITALS (18 sets, daily range): BP systolic 114–173; BP diastolic 65–96
[2020-03-28] MEDS ORDERED: ZOSYN 3.375GM+NS 50ML 50 ML IV ONE ×2 (00:01→09:03)
[2020-03-28 00:05] LABS: BASOPHILS % (AUTO) 0.4 % (0.0-5.0); EOSINOPHILS % (AUTO) 1.9 % (0.0-8.0); HEMATOCRIT 39.9 % (42-54); LYMPHOCYTES % (AUTO) 17.9 % (21.0-51.0); MEAN CORPUSCULAR HEMOGLOBIN 29.1 pg (27.0-33.0); MEAN CORPUSCULAR HGB CONC 33.6 g/dL (32.0-36.0); MEAN CORPUSCULAR VOLUME 86.6 fL (79-99); MONOCYTES % (AUTO) 4.8 % (3.0-13.0); NEUTROPHILS % (AUTO) 74.7 % (40.0-77.0); PLATELET COUNT (AUTO) 277 K/uL (130-400); RED BLOOD CELL COUNT(AUTO) 4.61 MIL/uL (4.50-6.20); RED CELL DISTRIBUTION WIDTH 13.4 % (11.0-15.5); WHITE BLOOD COUNT (AUTO) 9.9 K/uL (4.8-10.8)
[2020-03-28] MEDS ORDERED: ACETAMINOPHEN EXTRA STRENGTH 500 MG TABLET ONE (00:10)
[2020-03-28 00:26] LABS: ALANINE AMINOTRANSFERASE 9 U/L (12-78); ASPARTATE AMINOTRANSFERASE 10 U/L (10-37); BILIRUBIN,TOTAL 0.4 mg/dL (0.2-1.0); CARBON DIOXIDE 26 mmol/L (21-32); CHLORIDE 92 mmol/L (101-111); CREATINE KINASE, TOTAL 46 U/L (21-232); CREATININE 1.5 mg/dL (0.5-1.5); GLOMERULAR FILTR. RATE CALC 54 mL/min (>60); MYOGLOBIN 89 ng/mL (10-92); POTASSIUM 3.1 mmol/L (3.5-5.1); SODIUM SERUM 127 mmol/L (136-145); TOTAL PROTEIN, SERUM 8.4 g/dL (6.0-8.3); TROPONIN I < 0.04 ng/mL (0.00-0.06); UREA NITROGEN, BLOOD 8 mg/dL (7-18)
[2020-03-28 00:32] LABS: INR 0.95 (0.85-1.15); PARTIAL THROMBOPLASTIN TIME 29.2 SEC (26.3-35.5); PROTHROMBIN TIME 10.3 SEC (9.6-11.6)
[2020-03-28 00:39] LABS: GLUCOSE,RANDOM 597 mg/dL (70-105)
[2020-03-28] MEDS ORDERED: IOHEXOL-350 75 ML VIAL IV ONE (01:07)
[2020-03-28] MEDS ORDERED: VANCOMYCIN 1GM+NS 250ML 250 ML IV ONE ×2 (01:33→04:52)
[2020-03-28 01:48] LABS: ABG BASE EXCESS -0.6 mmol/L (-2.0-3.0); ABG HCO3 24.6 mmol/L (21.0-28.0); ABG OXYGEN SATURATION 79.6 % (95.0-99.0); ABG PCO2 42 mmHg (35-48)
[2020-03-28 01:50] LABS: ABG OXYGEN SATURATION 85.7 % (95.0-99.0); BASE EXCESS,VENOUS BLOOD GAS -1.3 (-2.0-3.0); HCO3,VENOUS BLOOD GAS 23.4 (21.0-28.0); PCO2,VENOUS BLOOD GAS 40 (35-48); PH,VENOUS BLOOD GAS 7.391 (7.350-7.450)
[2020-03-28] MEDS ORDERED: INSULIN HUMULIN R 100 UNIT/ML 3ML ONE ×2 (02:54→06:40)
[2020-03-28] MEDS ORDERED: ACETAMINOPHEN 325 MG TAB PO PRN ×2 (03:00)
[2020-03-28] MEDS ORDERED: POTASSIUM CHLORIDE 10MEQ/100ML 100 ML IV PRN (03:00)
[2020-03-28] MEDS ORDERED: LIDOCAINE HCL-MPF 1% 2ML VIAL IV PRN (03:00)
[2020-03-28] MEDS ORDERED: ONDANSETRON HCL 4 MG/2 ML VIAL IV PRN (03:00)
[2020-03-28] MEDS ORDERED: LACTULOSE 20 GM/30 ML UDCUP PO PRN (03:00)
[2020-03-28] MEDS ORDERED: VANCOMYCIN PROTOCOL PER PHARMACY IV SCH (03:00)
[2020-03-28] MEDS ORDERED: PHARMACY COMMUNICATION MISC SCH ×2 (04:15→16:45)
[2020-03-28] MEDS: ZOSYN 3.375GM+NS 50ML 50 ML IV SCH ×3 (05:00→20:56)
[2020-03-28 05:14] LABS: BASOPHILS % (AUTO) 0.5 % (0.0-5.0); EOSINOPHILS % (AUTO) 3.4 % (0.0-8.0); HEMATOCRIT 34.6 % (42-54); LYMPHOCYTES % (AUTO) 27.3 % (21.0-51.0); MEAN CORPUSCULAR HEMOGLOBIN 28.8 pg (27.0-33.0); MEAN CORPUSCULAR HGB CONC 33.2 g/dL (32.0-36.0); MEAN CORPUSCULAR VOLUME 86.5 fL (79-99); MONOCYTES % (AUTO) 5.9 % (3.0-13.0); NEUTROPHILS % (AUTO) 62.4 % (40.0-77.0); PLATELET COUNT (AUTO) 230 K/uL (130-400); RED CELL DISTRIBUTION WIDTH 13.3 % (11.0-15.5); WHITE BLOOD COUNT (AUTO) 8.7 K/uL (4.8-10.8)
[2020-03-28 05:19] LABS: BILIRUBIN,URINE Negative (NEGATIVE); COLOR,URINE Yellow (YELLOW); GLUCOSE, URINE (UA) >=1000 mg/dL (NEGATIVE); KETONES,URINE Negative (NEGATIVE); LEUKOCYTE ESTERASE ,URINE Small (NEGATIVE); NITRATE,URINE Negative (NEGATIVE); OCCULT BLOOD,URINE Moderate (NEGATIVE); PROTEIN,URINE POS 2+ mg/dL (NEGATIVE)
[2020-03-28 05:20] LABS: APPEARANCE,URINE SLIGHTLY CLOUDY (CLEAR)
[2020-03-28 05:27] LABS: CREATININE 1.1 mg/dL (0.5-1.5)
[2020-03-28 05:28] LABS: BACTERIA,URINE Moderate /HPF (None Seen); YEAST,URINE BUDDING Moderate /HPF (None Seen)
[2020-03-28 05:28] LABS: AMPHET/METH SCREEN,URINE NEGATIVE (NEGATIVE); BARBITURATE SCREEN, URINE NEGATIVE (NEGATIVE); BENZODIAZEPINES SCREEN,URINE NEGATIVE (NEGATIVE); CANNABINOID SCREEN,URINE POSITIVE (NEGATIVE); COCAINE SCREEN,URINE POSITIVE (NEGATIVE); OPIATE SCREEN,URINE NEGATIVE (NEGATIVE); PHENCYCLIDINE SCREEN,URINE NEGATIVE (NEGATIVE)
[2020-03-28 05:31] LABS: POTASSIUM 2.7 mmol/L (3.5-5.1)
[2020-03-28] MEDS ORDERED: LIDOCAINE HCL-MPF 1% 2ML VIAL ONE (05:35)
[2020-03-28] MEDS ORDERED: POTASSIUM CHLORIDE 20MEQ/100ML 100 ML IV ONE (05:36)
[2020-03-28] MEDS: INSULIN HUMULIN R 100 UNIT/ML 3ML SQ SCH ×5 (06:00→18:16)
[2020-03-28] MEDS ORDERED: DEXTROSE 50%-WATER 50 ML DISP.SYRIN IV PRN (08:15)
[2020-03-28] MEDS ORDERED: GLUCAGON 1MG KIT 1 MG ML IM PRN (08:15)
[2020-03-28] MEDS ORDERED: RENAL DOSE IV SCH (08:30)
[2020-03-28] MEDS ORDERED: ENOXAPARIN SODIUM 40 MG/0.4 ML SYRINGE SQ ONE (09:02)
[2020-03-28] MEDS ORDERED: FAMOTIDINE/PF 20 MG/2 ML VIAL IV ONE (09:03)
[2020-03-28] MEDS ORDERED: ROCURONIUM 10MG/1ML SYR 10 MG/ML ML ONE (12:42)
[2020-03-28] MEDS ORDERED: SUCCINYLCHOLINE CHLORIDE 20 MG/ML 10 ML VIAL ONE (12:42)
[2020-03-28] MEDS ORDERED: PROPOFOL 10 MG/ML 20ML VIAL IV ONE ×2 (12:42→13:53)
[2020-03-28] MEDS ORDERED: LIDOCAINE PF 2% 5ML ABBOJECT ONE (12:42)
[2020-03-28] MEDS ORDERED: MIDAZOLAM HCL 1 MG/ML 2ML VIAL ONE (12:42)
[2020-03-28] MEDS ORDERED: FENTANYL CITRATE PF 50 MCG/1 ML 2ML VIAL ONE (12:43)
[2020-03-28] MEDS ORDERED: ONDANSETRON HCL 4 MG/2 ML VIAL ONE (12:44)
[2020-03-28] MEDS ORDERED: ONDANSETRON HCL 4 MG/2 ML VIAL IVP PRN (14:15)
--- NOTE | 2020-03-28 17:30 | NUR ---
MEDICATIONS AM MEDICATIONS NOT DOCUMENTED ON PRIOR TO ADMISSION TO FLOOR. SCHEDULED MEDICATIONS TO BE GIVEN AT THIS TIME
--- NOTE | 2020-03-28 17:56 | NUR ---
ATTEMPTED TO REACH PT/FAMILY FOR [place] FAMILY NUMBER MARIBEL ANGEL IN CHART IS INCORRECT. DAVOIN DOES NOT ANSWER IN HIS ROOM AT THIS TIME, WITH CALL BACK, ROOM PHONE BUSY. CELL PHONE NO ANSWER WILL RE TRY Addendum: 03/28/20 at 1758 by CHELLY GAMA RN CM Amended: Links added.
[2020-03-28] MEDS: MORPHINE SULFATE 2 MG/ML 1ML SYG IVP PRN (21:40)
[2020-03-28] MEDS: INSULIN GLARGINE 100 UNITS/ML 10 ML VIAL SQ SCH (21:49)
[2020-03-28] MEDS: FAMOTIDINE/PF 20 MG/2 ML VIAL IV SCH (22:08)
[2020-03-29] VITALS (7 sets, daily range): BP systolic 118–158; BP diastolic 65–97
[2020-03-29 05:00] LABS: BASOPHILS % (AUTO) 0.5 % (0.0-5.0); EOSINOPHILS % (AUTO) 4.2 % (0.0-8.0); HEMATOCRIT 34.2 % (42-54); LYMPHOCYTES % (AUTO) 33.3 % (21.0-51.0); MEAN CORPUSCULAR HEMOGLOBIN 27.9 pg (27.0-33.0); MEAN CORPUSCULAR HGB CONC 31.9 g/dL (32.0-36.0); MEAN CORPUSCULAR VOLUME 87.5 fL (79-99); MONOCYTES % (AUTO) 4.2 % (3.0-13.0); NEUTROPHILS % (AUTO) 57.5 % (40.0-77.0); PLATELET COUNT (AUTO) 233 K/uL (130-400); RED BLOOD CELL COUNT(AUTO) 3.91 MIL/uL (4.50-6.20); RED CELL DISTRIBUTION WIDTH 13.7 % (11.0-15.5)
[2020-03-29 05:09] LABS: POTASSIUM 3.2 mmol/L (3.5-5.1)
[2020-03-29] MEDS: ZOSYN 3.375GM+NS 50ML 50 ML IV SCH ×3 (06:23→21:10)
[2020-03-29] MEDS: INSULIN GLARGINE 100 UNITS/ML 10 ML VIAL SQ SCH ×2 (06:27→21:19)
[2020-03-29] MEDS: INSULIN HUMULIN R 100 UNIT/ML 3ML SQ SCH ×7 (06:27→18:00)
[2020-03-29] MEDS ORDERED: POTASSIUM CHLORIDE 10% ELIXIR 20 MEQ/15 ML UDCUP PO PRN (06:45)
[2020-03-29] MEDS: POTASSIUM CHLORIDE 20 MEQ ERTAB PO PRN (06:53)
[2020-03-29] MEDS: ENOXAPARIN SODIUM 40 MG/0.4 ML SYRINGE SQ SCH ×2 (09:00→10:24)
[2020-03-29] MEDS: NYSTATIN 15 GM POWDER TP SCH ×2 (09:00→14:00)
[2020-03-29] MEDS ORDERED: COMPOUND IV REFRIGERATED 1 EACH IVSOLN MISC PRN (09:15)
[2020-03-29] MEDS: FAMOTIDINE/PF 20 MG/2 ML VIAL IV SCH ×2 (10:22→21:11)
[2020-03-29] MEDS: VANCOMYCIN 1.5 GM in SODIUM CHLORIDE 0.9% 250 ML IV SCH ×2 (10:23→22:00)
[2020-03-29] MEDS: SODIUM CHLORIDE 0.9% 1000ML 1,000 ML IV SCH ×2 (10:42→18:48)
--- NOTE | 2020-03-29 12:54 | NUR ---
[facility] CONSULT PER PATIENT'S NURSE KWABENA, SURGEON WILL REMOVE DRESSING AND ASSESS PATIENT TODAY S/P I&D ON 03/28/2020. Addendum: 03/29/20 at 1316 by SASHA WHEAT LVN LVN W Amended: Links added.
--- NOTE | 2020-03-29 13:00 | NUR ---
WOUND CARE TEAM INFORMED TEAM THAT PT IS PENDING DR KRUEGER TO REVIEW DRESSING AND THAT PATIENT STATES DRESSING CHANGES ARE VERY PAINFUL, PT ASKED TO MINIMIZE DRESSING CHANGES DUE TO PAIN. ASKED WOUND CARE TEAM TO RETURN LATER DUE TO PAIN.
[2020-03-29] MEDS: METFORMIN HCL 500 MG TABLET PO SCH (17:00)
--- NOTE | 2020-03-29 17:16 | NUR ---
CM NOTE AND DISCHARGE PLANNING FOR AFTERCARE MET W PATIENT AT BEDSIDE. ADVISED HIM MILLI TOUR NUMBERS FOR HIS SISTER WERE INCORRECTR STATES HIS PHONE IS NOT CHARGING PROPERLY AND HE CANNOT REMEMBER NUMBER. PERMISSION GIVEN TO OBTAIN CONTACT JUSTICEMADAN FROM D OFFICE AND CALL SISTER TO LET HER KNOW PT WAS ADMITTED/DX. PT LIVES ALONE, PROVIDER SERVICE 2 HRS DAILY, LIVES IN AN APT ATTACHED TO DAD'S HOUSE, 3 STEP UP TO [place], NOT EASY, HAS W/CHAIR, RW, PROSTHESIS, GLUCOMETER. HAS BEEN TO [facility] IN PAST FOR REHAB ETC, AND IF NEEDED STATES THAT IS WHERE HE WOULD LIKE TO GO BACK, [facility] ONLY, IN INITIAL ASSESSMENT, DID NOT PLACE IN CHART, WILL DISCUSS FURTHER BEFORE SENDING REFERRAL CALL TO , DR. Lawrence, STATES WILL DISCUSS WITH DR. SORENSEN , WHO WAS SUGGESTING [facility], CALL TO D, GOT SISTER'S NUMBER, DISCUSSED ADMIT DX AND AFTERCARE, SHE STATES DOS NOT WANT [facility] FOR PATIENT, MOM WAS JUST THERE AND GOT SICK, NOW HOME /BETTER, BUT BAD EXPERIENCE. BUT STATES PT CAN MAKE HIS MIND UP HIMSELF. Addendum: 03/29/20 at 1723 by CHELLY GAMA RN CM Amended: Links added.
[2020-03-29] MEDS: MORPHINE SULFATE 2 MG/ML 1ML SYG IVP PRN (21:30)
[2020-03-30] MEDS: INSULIN HUMULIN R 100 UNIT/ML 3ML SQ SCH ×8 (01:36→21:41)
--- NOTE | 2020-03-30 03:51 | NUR ---
PATIENT RESTING IN BED. A/OX3. DENIES CHEST PAIN OR SOB. SUGAR CHECK Q6H,GLUCOSE REMAINS ELEVATED. PATIENT DID C/O PAIN TO JOE WOUNDS. MEDICATED PER ORDERS. TOLERATING IV ANTIBIOTICS WELL. WILL CONTINUE TO MONITOR.
[2020-03-30 04:34] VITALS: BP 125/73
[2020-03-30] MEDS: ZOSYN 3.375GM+NS 50ML 50 ML IV SCH ×3 (04:40→20:37)
[2020-03-30 05:09] LABS: BASOPHILS % (AUTO) 0.7 % (0.0-5.0); EOSINOPHILS % (AUTO) 2.6 % (0.0-8.0); HEMATOCRIT 35.4 % (42-54); LYMPHOCYTES % (AUTO) 31.3 % (21.0-51.0); MEAN CORPUSCULAR HGB CONC 33.3 g/dL (32.0-36.0); MONOCYTES % (AUTO) 6.2 % (3.0-13.0); NEUTROPHILS % (AUTO) 58.7 % (40.0-77.0); PLATELET COUNT (AUTO) 234 K/uL (130-400); RED BLOOD CELL COUNT(AUTO) 4.07 MIL/uL (4.50-6.20); RED CELL DISTRIBUTION WIDTH 13.4 % (11.0-15.5); WHITE BLOOD COUNT (AUTO) 5.8 K/uL (4.8-10.8)
[2020-03-30 05:20] LABS: HEMOGLOBIN A1C 13.6 % (4.0-6.0)
[2020-03-30 05:21] LABS: POTASSIUM 3.2 mmol/L (3.5-5.1)
[2020-03-30] MEDS: POTASSIUM CHLORIDE 20 MEQ ERTAB PO PRN (06:22)
[2020-03-30] MEDS: INSULIN GLARGINE 100 UNITS/ML 10 ML VIAL SQ SCH (06:24)
[2020-03-30 07:00] VITALS: BP 141/87
[2020-03-30] MEDS: NYSTATIN 15 GM POWDER TP SCH ×4 (09:00→21:42)
[2020-03-30] MEDS: METFORMIN HCL 500 MG TABLET PO SCH ×2 (10:06→17:30)
[2020-03-30] MEDS: FAMOTIDINE/PF 20 MG/2 ML VIAL IV SCH ×2 (10:06→20:37)
[2020-03-30] MEDS: ENOXAPARIN SODIUM 40 MG/0.4 ML SYRINGE SQ SCH (10:07)
[2020-03-30] MEDS: VANCOMYCIN 1.5 GM in SODIUM CHLORIDE 0.9% 250 ML IV SCH ×2 (10:08→22:29)
[2020-03-30] MEDS: SODIUM CHLORIDE 0.9% 1000ML 1,000 ML IV SCH ×2 (10:08→18:48)
[2020-03-30 11:00] VITALS: BP 141/84
--- NOTE | 2020-03-30 11:52 | NUR ---
cm note spoke to dr Zhu regarding plan, states iv antibiotics pt is currently receiving are needed approx 3 weeks, states will hold off on PICC line, until the culture results come back, states will agree to Peer to peer with insurance if needed. updated Dr Kolby Riggins on above, new orders received. Addendum: 03/30/20 at 1157 by SHANT JC CM met with patient and discussed orders for [facility] for iv antibiotic therapy. states he has been there in the past, and is agreeable to go to [facility].
[2020-03-30] MEDS: MORPHINE SULFATE 4 MG/1ML SYG IV PRN ×2 (12:25→20:36)
[2020-03-30 15:00] VITALS: BP 143/92
--- NOTE | 2020-03-30 16:16 | NUR ---
cm note referral faxed to [facility]. pending evaluation.
[2020-03-30 20:13] VITALS: BP 151/93
[2020-03-30] MEDS: INSULIN HUMULIN 70/30 100 UNIT/ML 3ML SQ SCH (20:45)
[2020-03-30 23:29] VITALS: BP 153/87
[2020-03-31] MEDS: SODIUM CHLORIDE 0.9% 1000ML 1,000 ML IV SCH ×3 (03:53→21:31)
[2020-03-31 04:02] VITALS: BP 151/87
[2020-03-31] MEDS: ZOSYN 3.375GM+NS 50ML 50 ML IV SCH ×3 (04:46→21:24)
[2020-03-31] MEDS: INSULIN HUMULIN R 100 UNIT/ML 3ML SQ SCH ×7 (05:41→21:29)
[2020-03-31] MEDS: MORPHINE SULFATE 2 MG/ML 1ML SYG IVP PRN (06:08)
[2020-03-31] MEDS: INSULIN HUMULIN 70/30 100 UNIT/ML 3ML SQ SCH ×2 (06:52→21:29)
[2020-03-31 07:00] VITALS: BP_SYST 140; BP_SYST 141; BP_DIAS 72; BP_DIAS 94
--- NOTE | 2020-03-31 07:35 | NUR ---
ASSESSMENT ENCOUNTERED PT A&OX3, CALM COOPERATIVE AND DOES NOT APPEAR TO BE IN ANY DISTRESS NOR ANY NEURO DEFICITS PRESENT. PT DENIES SOB, NAUSEA BUT DOES C/O DISCOMFORT TO PERIANAL AREA DUE TO RECENT I&D BY DR KRUEGER. PT DOES HAVE INCISION TO PERIANAL AREA AND RECTAL AREA THAT ARE PACKED WITH WET TO DRY GAUZE, NO OOZING OR DISCHARGE PRESENT. 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 CALL LIGHT WITHIN REACH.
--- NOTE | 2020-03-31 10:00 | NUR ---
[facility] F/U CM spoke to Johnny Funes from [email or web address]. States referral was received and will be submitting for auth.
[2020-03-31] MEDS: VANCOMYCIN 1.5 GM in SODIUM CHLORIDE 0.9% 250 ML IV SCH ×2 (10:05→22:17)
[2020-03-31] MEDS: FAMOTIDINE/PF 20 MG/2 ML VIAL IV SCH ×2 (10:33→21:24)
[2020-03-31] MEDS: ENOXAPARIN SODIUM 40 MG/0.4 ML SYRINGE SQ SCH (10:33)
[2020-03-31] MEDS: NYSTATIN 15 GM POWDER TP SCH ×2 (10:34→21:32)
[2020-03-31] MEDS: METFORMIN HCL 500 MG TABLET PO SCH ×2 (10:34→18:08)
[2020-03-31 11:00] VITALS: BP 151/89
--- NOTE | 2020-03-31 13:00 | NUR ---
AMBULATION TO SHOWER AND BACK TO BED, GAIT SLOW BUT STEADY WITH PROSTHETIC RT LEG FOR SHOWER, TOLERATING WELL, CALL LIGHT WITHIN REACH.
[2020-03-31] MEDS: MORPHINE SULFATE 4 MG/1ML SYG IV PRN ×2 (14:03→21:42)
[2020-03-31 15:00] VITALS: BP 149/92
[2020-03-31] MEDS: ASPIRIN 81MG TAB.CHEW PO SCH (18:08)
[2020-03-31 20:44] VITALS: BP 155/89
--- NOTE | 2020-03-31 21:30 | NUR ---
MEDS SHIFT ASSESSMENT DONE, PLEASE REFER TO CHART. PT CLAIMS OF PAIN ON HIS RECTAL AREA. DUE MEDS ADMINISTERED, MORPHINE IV GIVEN FOR PAINS. KEPT RESTED AND COMFORTABLE IN BED. CALL LIGHT WITHIN REACH. WILL RE-ASSESS PT. Addendum: 04/01/20 at 0322 by EDA CONNORS RN RN Amended: Links added.
[2020-04-01] VITALS (7 sets, daily range): BP systolic 138–172; BP diastolic 60–98
[2020-04-01] MEDS: SODIUM CHLORIDE 0.9% 1000ML 1,000 ML IV SCH ×3 (01:49→16:41)
--- NOTE | 2020-04-01 02:00 | NUR ---
ROUNDS PT RESTING WELL, FAIRLY ASLEEP. NO DISTRESS NOTED. KEPT RESTED AND COMFORTABLE. CALL LIGHT WITHIN REACH. WILL MONITOR PT. CALL LIGHT WITHIN REACH.
[2020-04-01] MEDS: ZOSYN 3.375GM+NS 50ML 50 ML IV SCH ×3 (04:14→19:37)
[2020-04-01 04:24] LABS: BASOPHILS % (AUTO) 0.5 % (0.0-5.0); EOSINOPHILS % (AUTO) 4.2 % (0.0-8.0); HEMATOCRIT 35.8 % (42-54); LYMPHOCYTES % (AUTO) 38.6 % (21.0-51.0); MEAN CORPUSCULAR HEMOGLOBIN 28.7 pg (27.0-33.0); MEAN CORPUSCULAR HGB CONC 32.7 g/dL (32.0-36.0); MONOCYTES % (AUTO) 5.7 % (3.0-13.0); NEUTROPHILS % (AUTO) 50.7 % (40.0-77.0); PLATELET COUNT (AUTO) 241 K/uL (130-400); RED BLOOD CELL COUNT(AUTO) 4.07 MIL/uL (4.50-6.20); RED CELL DISTRIBUTION WIDTH 13.5 % (11.0-15.5)
[2020-04-01 04:35] LABS: CREATININE 1.1 mg/dL (0.5-1.5); POTASSIUM 3.9 mmol/L (3.5-5.1)
--- NOTE | 2020-04-01 05:00 | NUR ---
ROUNDS PT RESTING WELL, FAIRLY ASLEEP WITH RESPIRATIONS EVEN AND UNLABORED. NO NOTED DISTRESS. KEPT UNDISTURBED FOR NOW. FOR MORE CARE.
[2020-04-01] MEDS: INSULIN HUMULIN 70/30 100 UNIT/ML 3ML SQ SCH ×2 (06:08→20:00)
[2020-04-01] MEDS: INSULIN HUMULIN R 100 UNIT/ML 3ML SQ SCH ×7 (06:09→20:01)
[2020-04-01] MEDS: METFORMIN HCL 500 MG TABLET PO SCH ×2 (08:50→17:21)
[2020-04-01] MEDS: ASPIRIN 81MG TAB.CHEW PO SCH (08:51)
[2020-04-01] MEDS: ENOXAPARIN SODIUM 40 MG/0.4 ML SYRINGE SQ SCH (08:56)
[2020-04-01] MEDS: FAMOTIDINE/PF 20 MG/2 ML VIAL IV SCH ×2 (08:56→19:38)
[2020-04-01] MEDS: NYSTATIN 15 GM POWDER TP SCH ×2 (09:00→19:38)
[2020-04-01] MEDS: MORPHINE SULFATE 4 MG/1ML SYG IV PRN ×3 (09:32→22:37)
--- NOTE | 2020-04-01 10:30 | NUR ---
Dr Henry here spoke with pt concerning lower extremity angiogram ,pt agrees to proceed with procedure Addendum: 04/01/20 at 1535 by CLIFF BOYD RN RN Amended: Links added.
--- NOTE | 2020-04-01 10:35 | NUR ---
Dr Shaikh was paged Addendum: 04/01/20 at 1538 by CLIFF BOYD RN RN Amended: Links added.
[2020-04-01] MEDS: VANCOMYCIN 1.5 GM in SODIUM CHLORIDE 0.9% 250 ML IV SCH ×2 (10:45→23:06)
--- NOTE | 2020-04-01 14:20 | NUR ---
Dr ALEGRIA PRETZEL TWISTING MACHINE OPERATOR called and said this pt is Dr Hernandez pt Addendum: 04/01/20 at 1543 by CLIFF BOYD RN RN Amended: Links added.
--- NOTE | 2020-04-01 14:45 | NUR ---
Dr Ahumada notified and spoke with dr Ahumada concerning the consult ,states he will see the pt later today Addendum: 04/01/20 at 1546 by CLIFF BOYD RN RN Amended: Links added.
--- NOTE | 2020-04-01 15:20 | NUR ---
Dressing x 2 left rectal area and left scrotal area ,wet to dry dressing packed with x 1 4x4 each Addendum: 04/01/20 at 1552 by CLIFF BOYD RN RN Amended: Links added.
--- NOTE | 2020-04-01 19:40 | NUR ---
MEDS SHIFT ASSESSMENT DONE, PLEASE REFER TO CHART. DUE MEDS ADMINISTERED, TOLERATED WELL. CALL LIGHT WITHIN REACH. WILL MONITOR PT.
--- NOTE | 2020-04-01 21:15 | NUR ---
REPORT REPORT GIVEN TO SARIAH MOYER. PT FOR MORE CARE AND MANAGEMENT.
[2020-04-02] VITALS: BP 157/87
[2020-04-02] MEDS: SODIUM CHLORIDE 0.9% 1000ML 1,000 ML IV SCH ×4 (01:56→21:09)
[2020-04-02 03:58] LABS: CREATININE 1.2 mg/dL (0.5-1.5); POTASSIUM 4.1 mmol/L (3.5-5.1)
[2020-04-02 04:00] VITALS: BP 147/94
[2020-04-02 04:01] LABS: BASOPHILS % (AUTO) 0.7 % (0.0-5.0); HEMATOCRIT 34.7 % (42-54); LYMPHOCYTES % (AUTO) 38.9 % (21.0-51.0); MEAN CORPUSCULAR VOLUME 87.6 fL (79-99); MONOCYTES % (AUTO) 5.3 % (3.0-13.0); NEUTROPHILS % (AUTO) 49.8 % (40.0-77.0); PLATELET COUNT (AUTO) 244 K/uL (130-400); RED BLOOD CELL COUNT(AUTO) 3.96 MIL/uL (4.50-6.20); RED CELL DISTRIBUTION WIDTH 13.5 % (11.0-15.5)
[2020-04-02] MEDS: ZOSYN 3.375GM+NS 50ML 50 ML IV SCH ×3 (05:24→20:37)
[2020-04-02] MEDS: MORPHINE SULFATE 4 MG/1ML SYG IV PRN ×3 (05:34→20:38)
[2020-04-02] MEDS: INSULIN HUMULIN R 100 UNIT/ML 3ML SQ SCH ×7 (06:44→20:49)
[2020-04-02] MEDS: INSULIN HUMULIN 70/30 100 UNIT/ML 3ML SQ SCH ×2 (06:45→20:50)
[2020-04-02 08:00] VITALS: BP 135/80
[2020-04-02] MEDS: METFORMIN HCL 500 MG TABLET PO SCH ×2 (08:00→17:00)
[2020-04-02] MEDS: ASPIRIN 81MG TAB.CHEW PO SCH (09:16)
[2020-04-02] MEDS: FAMOTIDINE/PF 20 MG/2 ML VIAL IV SCH ×2 (09:17→20:37)
[2020-04-02] MEDS: ENOXAPARIN SODIUM 40 MG/0.4 ML SYRINGE SQ SCH (09:18)
[2020-04-02] MEDS: VANCOMYCIN 1.5 GM in SODIUM CHLORIDE 0.9% 250 ML IV SCH ×2 (09:19→21:08)
[2020-04-02] MEDS: NYSTATIN 15 GM POWDER TP SCH ×3 (09:19→20:51)
--- NOTE | 2020-04-02 11:08 | NUR ---
NUTRITION EDUCATION Pt refusal of Nutrition education. Pt refusal of reference materials. RD to follow up. Addendum: 04/02/20 at [address] RD Amended: Links added.
--- NOTE | 2020-04-02 11:13 | NUR ---
RD NOTIFICATION Pt admitted with Rectal abscess, Cellulitis. Pt contacted via phone due to isolation protocol. Pt tolerating Heart Healthy Diet order with no report of GI distress, PO intake at 100%. Pt requesting larger food portions and snacks between meals. Pt is Obesity Class II (BMI 39.1). Pt with non-healing foot ulcer, abdominal wall abscess, s/p debridement, pending vascular consult as per EMR. Reviewed food preferences with Pt. Recommend Sandro BID, 500mg Vitamin C, 220mg ZnSO4 for wound healing support Pt requests Larger meal portions/snacks between meals Recommend 75gm CC diet modification Pt refusal of Nutrition education RD to continue to monitor. Please notify as additional nutrition concerns arise. Thank you. Addendum: 04/02/20 at [address] RD Amended: Links added.
[2020-04-02 11:55] VITALS: BP 155/95
--- NOTE | 2020-04-02 13:20 | NUR ---
DR. BEATTY HERE ASSESSMENT TO HIS LT FOOT, AND EXPLAIN . TO PT. REGARDING, , CATH . FOR CIRCULATION . CARE . FOR TOMMORROW. QUESTION REVIEW, EDUCATION . PROVIDE , ,
[2020-04-02] MEDS ORDERED: DiphenhydrAMINE HCL 50 MG/ML VIAL IVP PRN (13:30)
--- NOTE | 2020-04-02 14:30 | NUR ---
ADVISED KARLA ROLLE THAT PATIENT IS ACCEPTED AT [facility], -- WILL EXPECT PLAN IS TO BE DISCHARGED THERE AFTER PROCEDURE TOMORROW
--- NOTE | 2020-04-02 15:00 | NUR ---
DRSG TO HIS JOE RECTAL SITE,, DONE, CLEANSE WITH THE SALINE ,AND APPLICATION OF A WET TO DRY DRSG APPLY.. NOTED NO DRAINAGE TO SITE, , TOLERATEE WELL.
[2020-04-02 16:00] VITALS: BP 152/99
--- NOTE | 2020-04-02 17:00 | NUR ---
HELD MEFORMIN AM AND PM DOSE DIABETIC MEDICATION DUE TO PENDING ANGIOGRAM. POSSIBLE CONTRAST FOR PROCEDURE, PREVENTION OF SIDE EFFECT, PT AWARE OF EDUCATION.
--- NOTE | 2020-04-02 18:20 | NUR ---
ADVISED KARLA ROLLE THAT PATIENT IS ACCEPTED AT [facility], -- WILL EXPECT PLAN IS TO BE DISCHARGED THERE AFTER PROCEDURE TOMORROW
[2020-04-02 19:00] VITALS: BP 160/99
[2020-04-03] VITALS (12 sets, daily range): BP systolic 133–164; BP diastolic 76–95
[2020-04-03] MEDS: MORPHINE SULFATE 4 MG/1ML SYG IV PRN ×4 (01:18→20:53)
[2020-04-03 04:31] LABS: BASOPHILS % (AUTO) 0.6 % (0.0-5.0); EOSINOPHILS % (AUTO) 5.1 % (0.0-8.0); HEMATOCRIT 38.2 % (42-54); LYMPHOCYTES % (AUTO) 36.5 % (21.0-51.0); MEAN CORPUSCULAR HEMOGLOBIN 27.7 pg (27.0-33.0); MEAN CORPUSCULAR HGB CONC 31.7 g/dL (32.0-36.0); MEAN CORPUSCULAR VOLUME 87.4 fL (79-99); MONOCYTES % (AUTO) 5.3 % (3.0-13.0); PLATELET COUNT (AUTO) 294 K/uL (130-400); RED BLOOD CELL COUNT(AUTO) 4.37 MIL/uL (4.50-6.20); RED CELL DISTRIBUTION WIDTH 13.4 % (11.0-15.5); WHITE BLOOD COUNT (AUTO) 6.2 K/uL (4.8-10.8)
[2020-04-03 04:46] LABS: PROTHROMBIN TIME 10.3 SEC (9.6-11.6)
[2020-04-03 04:47] LABS: INR 0.95 (0.85-1.15); PARTIAL THROMBOPLASTIN TIME 27.5 SEC (26.3-35.5)
[2020-04-03 04:49] LABS: CREATININE 1.1 mg/dL (0.5-1.5); POTASSIUM 4.3 mmol/L (3.5-5.1)
[2020-04-03] MEDS: ZOSYN 3.375GM+NS 50ML 50 ML IV SCH ×3 (05:02→20:51)
[2020-04-03] MEDS: SODIUM CHLORIDE 0.9% 1000ML 1,000 ML IV SCH ×3 (05:30→20:57)
[2020-04-03] MEDS: INSULIN HUMULIN 70/30 100 UNIT/ML 3ML SQ SCH ×2 (05:45→20:50)
[2020-04-03] MEDS: INSULIN HUMULIN R 100 UNIT/ML 3ML SQ SCH ×7 (05:45→20:51)
--- NOTE | 2020-04-03 06:00 | NUR ---
Attempted twice to start a 20 gauge to LUE as ordered for angiogram. Patient upset stated did not want to be punctured anymore. Incoming nurse made aware of pending IVs.
[2020-04-03 06:25] LABS: CREATINE KINASE, TOTAL 12 U/L (21-232); MYOGLOBIN 18 ng/mL (10-92); TROPONIN I < 0.04 ng/mL (0.00-0.06)
[2020-04-03] MEDS: ENOXAPARIN SODIUM 40 MG/0.4 ML SYRINGE SQ SCH (07:45)
[2020-04-03] MEDS: NYSTATIN 15 GM POWDER TP SCH ×3 (08:39→20:58)
[2020-04-03] MEDS: ASPIRIN 81MG TAB.CHEW PO SCH (08:39)
[2020-04-03] MEDS: VANCOMYCIN 1.5 GM in SODIUM CHLORIDE 0.9% 250 ML IV SCH ×2 (08:39→23:29)
[2020-04-03] MEDS: FAMOTIDINE/PF 20 MG/2 ML VIAL IV SCH ×2 (08:39→20:52)
[2020-04-03] MEDS ORDERED: DiphenhydrAMINE HCL 50 MG/ML VIAL ONE (13:35)
[2020-04-03] MEDS ORDERED: IODIXANOL 320 MG/ML 100 ML VIAL ONE (13:56)
[2020-04-03] MEDS ORDERED: NITROGLYCERIN 2 MG/VIAL VIAL IV ONE (13:56)
[2020-04-03] MEDS ORDERED: HEPARIN SODIUM 1000UNIT/ML 10ML VIAL ONE (13:56)
[2020-04-03] MEDS ORDERED: FENTANYL CITRATE PF 50 MCG/1 ML 2ML VIAL ONE (13:57)
[2020-04-03] MEDS ORDERED: LIDOCAINE HCL 2% 20ML ONE (13:57)
[2020-04-03] MEDS ORDERED: MIDAZOLAM HCL 1 MG/ML 2ML VIAL ONE (13:57)
[2020-04-03] MEDS ORDERED: SODIUM CHLORIDE 0.9% 1000ML 1,000 ML IV SCH (14:48)
[2020-04-04] MEDS: MORPHINE SULFATE 4 MG/1ML SYG IV PRN ×2 (03:59→12:28)
[2020-04-04 04:06] VITALS: BP 162/98
[2020-04-04] MEDS: ZOSYN 3.375GM+NS 50ML 50 ML IV SCH ×2 (04:37→12:26)
[2020-04-04 05:06] LABS: HEMATOCRIT 34.5 % (42-54); MEAN CORPUSCULAR HEMOGLOBIN 28.5 pg (27.0-33.0); MEAN CORPUSCULAR HGB CONC 32.8 g/dL (32.0-36.0); MEAN CORPUSCULAR VOLUME 87.1 fL (79-99); RED BLOOD CELL COUNT(AUTO) 3.96 MIL/uL (4.50-6.20); RED CELL DISTRIBUTION WIDTH 13.2 % (11.0-15.5); WHITE BLOOD COUNT (AUTO) 6.5 K/uL (4.8-10.8)
[2020-04-04 05:15] LABS: POTASSIUM 3.8 mmol/L (3.5-5.1)
[2020-04-04] MEDS: SODIUM CHLORIDE 0.9% 1000ML 1,000 ML IV SCH (06:39)
[2020-04-04] MEDS: INSULIN HUMULIN R 100 UNIT/ML 3ML SQ SCH ×4 (06:40→12:06)
[2020-04-04] MEDS: INSULIN HUMULIN 70/30 100 UNIT/ML 3ML SQ SCH (06:42)
[2020-04-04 08:18] VITALS: BP 136/78
[2020-04-04] MEDS: ASPIRIN 81MG TAB.CHEW PO SCH (08:34)
[2020-04-04] MEDS: FAMOTIDINE/PF 20 MG/2 ML VIAL IV SCH (08:35)
[2020-04-04] MEDS: NYSTATIN 15 GM POWDER TP SCH ×2 (08:35→14:20)
--- NOTE | 2020-04-04 09:43 | NUR ---
ADVISED [facility] THAT PT WILL BE DISCHARGED TODAY- SHE OLGA CALL BACK AT NOON TO LET US KNOW THERE IS A BED Addendum: 04/04/20 at 0952 by CHELLY GAMA RN CM Amended: Links added.
[2020-04-04] MEDS: VANCOMYCIN 1.5 GM in SODIUM CHLORIDE 0.9% 250 ML IV SCH ×2 (10:00→10:07)
[2020-04-04 11:18] VITALS: BP 137/89
--- NOTE | 2020-04-04 14:55 | NUR ---
REPORT TELEPHONE REPORT TO [facility]QUES HAS BEEN CALLED IN TO [facility]. PATIENT IS AWARE AND IS EAGER TO GO. [facility] HAS BEEN CALLED TO PICK PATIENT UP FOR TRANSFER, BUT THEY TELL ME THAT THEY HAVE NO PAPERWORK FOR THIS PATIENT. WILL ATTEMPT TO GET A HOLD OF THE BI ARCHITECT TO MAKE SURE THE CORRECT PAPERWORK IS SENT.
--- NOTE | 2020-04-04 16:30 | NUR ---
TRANSFER TO [facility] PATIENT HAS BEEN TRANSPORTED TO [facility] BY [facility] IN STABLE CONDITION.
== END 2020-04-04 16:25 | DRG 854 ==
LOC: EDH 23:13 → EDHIP 03-28 02:48 → 4DH 03-28 15:25 → 3CH 03-31 18:49
PROVIDERS: ADMIT Internal Medicine; ATTEND Internal Medicine
PROC: 0D9P0ZZ Drainage of Rectum, Open Approach (ICD-10-PCS; principal; 2020-03-28 13:52)
PROC: 0JBP0ZZ Excision of Left Lower Leg Subcutaneous Tissue and Fascia, Open Approach (ICD-10-PCS; 2020-03-30)
PROC: B410YZZ Fluoroscopy of Abdominal Aorta using Other Contrast (ICD-10-PCS; 2020-04-03)
PROC: B41GYZZ Fluoroscopy of Left Lower Extremity Arteries using Other Contrast (ICD-10-PCS; 2020-04-03)
PROC: B41FYZZ Fluoroscopy of Right Lower Extremity Arteries using Other Contrast (ICD-10-PCS; 2020-04-03)
DX: A41.9 Sepsis, unspecified organism (principal); K61.1 Rectal abscess; L02.215 Cutaneous abscess of perineum; E11.52 Type 2 diabetes mellitus with diabetic peripheral angiopathy with gangrene; L97.429 Non-pressure chronic ulcer of left heel and midfoot with unspecified severity; N39.0 Urinary tract infection, site not specified; E87.6 Hypokalemia; E66.01 Morbid (severe) obesity due to excess calories; E11.621 Type 2 diabetes mellitus with foot ulcer; B35.1 Tinea unguium; B35.6 Tinea cruris; E11.22 Type 2 diabetes mellitus with diabetic chronic kidney disease; E11.65 Type 2 diabetes mellitus with hyperglycemia; E78.5 Hyperlipidemia, unspecified; F10.10 Alcohol abuse, uncomplicated; F12.10 Cannabis abuse, uncomplicated; F14.10 Cocaine abuse, uncomplicated; F17.210 Nicotine dependence, cigarettes, uncomplicated; I12.9 Hypertensive chronic kidney disease with stage 1 through stage 4 chronic kidney disease, or unspecified chronic kidney disease; I25.10 Atherosclerotic heart disease of native coronary artery without angina pectoris; I70.209 Unspecified atherosclerosis of native arteries of extremities, unspecified extremity; L60.2 Onychogryphosis; L97.519 Non-pressure chronic ulcer of other part of right foot with unspecified severity; L97.529 Non-pressure chronic ulcer of other part of left foot with unspecified severity; N18.9 Chronic kidney disease, unspecified; Z83.3 Family history of diabetes mellitus; Z89.511 Acquired absence of right leg below knee; Z91.14 Patient's other noncompliance with medication regimen
CPT/HCPCS: 36247; 36415; 36600; 71045; 71250; 74177; 75710; 80048; 80053; 80202; 80305; 81001; 82010; 82435; 82550; 82803; 82947; 82948; 83036; 83605; 83690; 83874; 84132; 84145; 84295; 84484; 85025; 85027; 85610; 85730; 87040; 87070; 87076; 87077; 87088; 87186; 87205; 88304; 93005; 93926; 99156; 99157; 99291; C1760; C1769; C1894; G0378; J0330; J1200; J1644; J1650; J1815; J2001; J2250; J2270; J2405; J2543; J2704; J3010; J3370; J3480; J3490; J7030; J7050; J7120; Q9967